=== PATIENT | male | born 1965 | race Caucasian/White ===

== ENCOUNTER 2017-09-19 13:59 | Observation (INO) ==
--- NOTE | 2017-09-19 14:10 | Emergency Department Note ---
ED Disposition Clinical Impression: Unstable angina pectoris Disposition: Admitted as Observation Condition on Discharge: Good - Critical Care Critical Care Time: No Attestation: On , the high probability of a clinically significant, sudden or life threatening deterioration of the following system(s) required my full and direct attention, intervention and personal management. The time I documented below is in addition to time spent performing reported procedures but includes the following listed in this critical care notation. Medical Decision Making - Medical Records Medical records reviewed: Yes: I reviewed the patient's medical records. Vital Signs: 09/19/17 13:59 09/19/17 15:07 Temperature 98.4 F Pulse Rate 80 Respiratory Rate 20 20 Blood Pressure 146/81 Blood Pressure [Right Arm] 161/102 Blood Pressure Mean [Right Arm] 121 Blood Pressure Source Automatic Cuff Blood Pressure Source [Right Arm] Automatic Cuff Blood Pressure Position Sitting Blood Pressure Position [Right Arm] Sitting 02 Sat by Pulse Oximetry 97 Oxygen Delivery Method Room Air - Lab Data Lab results reviewed: Yes: I reviewed the patient's lab results. Lab Results 09/19/17 14:06: WBC 7.1, RBC 5.03, Hgb 15.8, Hct 48.0, MCV 95.5 H, MCH 31.4 H, MCHC 32.9, RDW 12.9, Plt Count 164, MPV 9.3, Neut % (Auto) 61.2, Lymph % (Auto) 27.9, [place] % (Auto) 4.7, Eos % (Auto) 5.7, Baso % (Auto) 0.5, Neut # (Auto) 4.3 , Lymph # (Auto) 2.0, [place] # (Auto) 0.3, Eos # (Auto) 0.4, Baso # (Auto) 0.0 09/19/17 14:06: Troponin I < 0.02 09/19/17 14:06: Sodium 134 L, Potassium 4.1, Chloride 100, Carbon Dioxide 30, Anion Gap 8.1, BUN 11, Creatinine 1.06, Estimated Creat Clear 151, Estimated GFR 73, Est GFR ( Amer) 88, Glucose 381 H, Calcium 8.4 L, Total Bilirubin 0.4, AST 7 L, ALT 26, Alkaline Phosphatase 94, Total Protein 7.6, Albumin 3.8, Globulin 3.8 H, Albumin/Globulin Ratio 1.0 L Result diagrams: 09/20/17 06:15 09/20/17 06:15 Orders (Tests/Meds): ED MEDICATIONS Discontinued Medications Generic Name Dose Route Start Last Admin Trade Name Kelly PRN Reason Stop Dose Admin Acetaminophen 650 mg 09/19/17 15:09 09/19/17 20:04 Acetaminophen 325mg Tab PO 10/19/17 15:08 650 mg Q4HP PRN Administration As Needed for Fever or Pain Aspirin 325 mg 09/20/17 09:00 Aspirin 325mg Tablet PO 10/20/17 08:59 DAILY FLORENCIO Aspirin 243 mg 09/19/17 14:12 09/19/17 14:17 Aspirin 81mg Chewable Tablet PO 09/19/17 14:13 243 mg ONCE ONE Administration Aspirin 81 mg 09/21/17 09:00 Aspirin 81mg Chewable Tablet PO 10/21/17 08:59 DAILY FLORENCIO Diphenhydramine HCl 50 mg 09/20/17 11:35 09/20/17 12:01 Benadryl 50mg/1ml Vial IV 09/20/17 11:36 50 mg ONCE ONE Administration Fentanyl Citrate 50 mcg 09/20/17 11:35 Fentanyl 100mcg/2ml Vial IV 09/20/17 17:00 Q3MINP PRN Moderate to Severe Pain Fentanyl Citrate 25 mcg 09/20/17 11:35 09/20/17 12:27 Fentanyl 100mcg/2ml Vial IV 09/20/17 17:00 50 mcg Q3MINP PRN Administration Moderate to Severe Pain Flumazenil 0.2 mg 09/20/17 11:35 Romazicon 0.1mg/Ml 5ml Vial IV 09/20/17 23:00 NEEDED PRN Sedation Heparin Sodium (Porcine) 10,000 unit 09/20/17 11:35 09/20/17 12:35 Heparin 1,000 Units/Ml 10ml Vial (Baby Registry Sales Consultant) IV 09/20/17 15:35 8,000 unit NEEDED PRN Administration Emergency Box Hydrology Professor Heparin Sodium/Sodium Chloride 3,000 unit 09/20/17 11:35 09/20/17 11:58 Heparin 1000 Units/500ml Ns (Baby Registry Sales Consultant) IV 09/20/17 11:36 3,000 unit ONCE ONE Administration Sodium Chloride 1,000 mls @ 50 mls/hr 09/19/17 15:09 09/20/17 13:52 Sod Chlor 0.9% 1000ml Bag IV 10/19/17 15:08 Not Given .Q20H FLORENCIO Sodium Chloride 1,000 mls @ 25 mls/hr 09/20/17 11:45 09/20/17 11:58 Sod Chlor 0.9% 1000ml Bag IV 09/22/17 03:44 25 mls/hr .Q25H FLORENCIO Administration Iopamidol 150 ml 09/20/17 12:58 09/20/17 12:59 Rad-Isovue 370; 150ml IV 09/20/17 12:59 150 ml ONCE ONE Administration Lidocaine HCl 20 ml 09/20/17 11:35 09/20/17 11:58 Lidocaine 1% 20ml Mdv IJ 09/20/17 11:36 20 ml ONCE ONE Administration Metoprolol Succinate 100 mg 09/20/17 09:00 09/20/17 09:18 Toprol Xl 100mg Tablet PO 10/20/17 08:59 100 mg DAILY FLORENCIO Administration Midazolam HCl 1 mg 09/20/17 11:35 09/20/17 12:27 Midazolam 1mg/Ml 5ml Vial IV 09/20/17 17:00 3 mg Q3MINP PRN Administration Sedation Midazolam HCl 1 mg 09/20/17 11:35 Midazolam 2mg/2ml Vial IV 09/20/17 17:00 Q3MINP PRN Sedation Morphine Sulfate 4 mg 09/20/17 12:57 09/20/17 13:05 Morphine 4mg/Ml Syringe IV 09/20/17 12:58 4 mg ONCE ONE Administration Naloxone HCl 0.4 mg 09/20/17 11:35 Narcan 0.4mg/Ml Vial IV 09/20/17 17:00 Q5MINP PRN Decreased respirations Nicotine 21 mg 09/19/17 15:09 09/20/17 16:00 Nicoderm 21mg/24hr Patch TD 09/22/17 14:54 21 mg DAILYP PRN Administration Nicotine Cravings Nitroglycerin 0.4 mg 09/19/17 14:12 09/19/17 14:16 Nitrostat 0.4mg Sl Tablet SL 09/19/17 14:13 0.4 mg ONCE ONE Administration Nitroglycerin 1 gm 09/19/17 14:30 09/19/17 14:33 Nitroglycerin 1 Inch Oint Udp TD 09/19/17 14:31 1 gm ONCE ONE Administration Nitroglycerin 800 mcg 09/20/17 11:35 09/20/17 11:58 Nitroglycerin 800mcg/8ml Syr (Baby Registry Sales Consultant) IV 09/20/17 17:00 800 mcg NEEDED PRN Administration Emergency Box Hydrology Professor Sodium Chloride 10 ml 09/20/17 11:35 Saline Flush 10ml Syringe IV 09/20/17 17:00 NEEDED PRN Maintain IV Site Ticagrelor 180 mg 09/20/17 12:57 09/20/17 13:06 Brilinta 90mg Tablet PO 09/20/17 12:58 180 mg ONCE ONE Administration Ticagrelor 90 mg 09/20/17 21:00 Brilinta 90mg Tablet PO 10/20/17 20:59 BID FLORENCIO Verapamil HCl 2.5 mg 09/20/17 11:35 09/20/17 11:58 Verapamil 2.5mg/Ml 2ml Vial IV 09/20/17 11:36 2.5 mg ONCE ONE Administration - Radiology Data #1 Image(s): Chest Image Reviewed: Yes I reviewed the patient's radiology results Preliminary Findings: Normal/NAD, No Infiltrates Seen, Normal Lung Inflation Jackson , Normal Heart Size - ECG Data Tracing #1 I reviewed this ECG and interpreted as documented below: INC RBBB, NSR, 88; no acute ST c hanges and no ectopy - Physician Consults Physician Consulted: Dr. Rodrigues insulation inspector for Dr. Raymond, who is on service call Time: 14:48 Reason -: Admission Comment/Response: admit for obs; serial trop, monitor - Dionicio Inquiry Pt receiving controlled substance: No Chest Pain HPI - General Stated Complaint: Chest Pain Time Seen by Provider: 09/19/17 14:07 Mode of Arrival: Ambulatory Source of Information: Patient, Spouse Limitations: No Limitations Description of Symptoms (Recalled from ER Triage Doc. 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 Radiates to jaw and shoulders. Denies SOB or flu sx; no n /v; no diaphoresis; no new calf pain; no syncope; no palpitations. PCP has referred him to Dr. Luis with stress test scheduled in September. Hx HTN with recent Rx metoprolol per PCP. Smokes. - Related Data Home Medications Medication Instructions Recorded Confirmed Metoprolol Succinate 100 mg PO DAILY 09/19/17 09/19/17 atorvastatin 40 mg tablet 40 mg PO DAILY tab 09/29/17 ibuprofen 800 mg tablet 800 mg PO DAILY tab 09/29/17 metformin 500 mg tablet 500 mg PO BID tab 09/29/17 Previous Rx's Medication Instructions Recorded Aspirin [Aspirin 81mg chewable 81 mg PO DAILY #30 tab.chew 09/20/17 tab] Ticagrelor [Brilinta 90mg Tablet] 90 mg PO BID #60 tab 09/20/17 lisinopril 10 1 tab PO DAILY #30 tab 09/29/17 mg-hydrochlorothiazide 12.5 mg tablet metoprolol succinate ER 50 mg 50 mg PO DAILY #30 tab 09/29/17 tablet,extended release 24 hr Allergies Allergy/AdvReac Type Severity Reaction Status Date / Time INGREDIENT: NO KNOWN - NO Allergy Unknown Uncoded 07/14/17 14:58 KNOWN DRUG ALLERGY [facility] History I have reviewed the patient's past medical history: Yes Medical History: Reports:: Hypertension ROS Obtained: Yes All systems reviewed & no additional complaints Physical Exam - General General appearance: alert, in no apparent distress - Eye Eye exam: Present: normal appearance, PERRL, EOMI - Neck Neck exam: Present: normal inspection, full ROM, trachea midline. Absent: meningismus, lymphadenopathy, thyromegaly - Chest Chest inspection: Present: normal inspection, symmetric chest wall rise. Absent : tenderness - Respiratory Respiratory exam: Present: normal lung sounds bilaterally. Absent: respiratory distress - Cardiovascular Cardiovascular exam: Present: regular rate, normal rhythm. Absent: JVD - Abdominal Exam Abdominal exam: Present: soft, normal bowel sounds. Absent: distention, tenderness, guarding - Neurological Exam Neurological exam: Present: alert, oriented X3, normal gait. Absent: motor sensory deficit - Psychiatric Psychiatric exam: Present: normal affect, normal mood - Skin Skin exam: Present: warm, dry, intact, normal color. Absent: rash, cyanosis, diaphoresis
[2017-09-19 14:16] LABS: Basophils % 0.5 % (0.1-2.0); Eosinophils # 0.4 K/mm3 (0.0-0.4); Eosinophils % 5.7 % (0.1-12.0); Hemoglobin 15.8 g/dL (14.1-18.0); Lymphocytes % 27.9 K/mm3 (10-50); Mean Corpuscular HGB Conc 32.9 g/dL (31.8-35.4); Mean Corpuscular Hemoglobin 31.4 pg (27.0-31.2); Mean Corpuscular Volume 95.5 fl (80-94); Mean Platelet Volume 9.3 fl (7.4-10.4); Monocytes # 0.3 K/mm3 (0.1-1.0); Monocytes % 4.7 % (1.7-9.3); Neutrophils # 4.3 K/mm3 (1.8-7.8); Neutrophils % 61.2 % (37.0-80.0); Platelet Count 164 K/mm3 (142-424); Red Blood Count 5.03 M/mm3 (4.60-6.20); Red Cell Distribution Width 12.9 % (11.5-17.5); White Blood Count 7.1 K/mm3 (4.8-10.8)
[2017-09-19 14:30] LABS: Albumin Level 3.8 gm/dL (3.4-5.0); Anion Gap 8.1 mEq/L (5-15); Bilirubin,Total 0.4 mg/dL (0.2-1.0); Calcium 8.4 mg/dL (8.5-10.1); Globulin 3.8 gm/dl (1.3-3.2); Potassium 4.1 mmoL/L (3.5-5.1); Total Protein,Serum 7.6 gm/dL (6.4-8.2)
[2017-09-19 15:53] LABS: Chol/HDL Ratio 4.8 (1-3.5)
--- NOTE | 2017-09-19 19:40 | History & Physical Report ---
*Admission Date: 09/19/17 *Chief complaint: Chest Pain *History of present illness: 52-year-old white male with history of hypertension, who came to the emergency department with chest pain that has occurred over the past couple of hours. He has been seen at the office by his family practitioner in [place] for chest pain over the past couple of weeks and has not had a stress test or echo that was initiated with a cardiology referral and has an appointment with the cardiology group here on Thursday for evaluation. Today after eating Lebanese food his pain change in character after walking to his car, he had pain up in both sides of his neck, and became concerned about this and came to the emergency department. Given his risk factors of obesity, hypertension and the new character of the pain he was admitted for observation and serial cardiac enzymes. Of note Nitropaste application has completely resolved his pain after a couple of sublingual nitroglycerin tablets ameliorated it in the ER. [facility] History Medical History: Reports:: Hyperlipidemia, Hypertension Denies:: Cancer, Diabetes Mellitus Type 1, Diabetes Mellitus Type 2, Internal Pacemaker, MRSA Other Surgeries: No: Pacemaker Amputation: No Fractures: No - *Social History Educational Level: Completed GED/General Educational Development Smoking Status: Current every day smoker Tobacco Type: cigarettes # Packs/Day (cigarettes): 1 Alcohol Intake: never Occupational Status: employed Housing: house Household Members: spouse - Psychiatric History Expresses thoughts of harming self/others: None Suicide Plan Description: No Plan *Family Hx:: Diabetes, Heart Attack, Hyperlipidemia, Hypertension Review of Systems - Review of Systems Review of systems:: unable to obtain, other, pertinent systems reviewed and negative unless documented below - *Respiratory Denies chest congestion, Denies cough, Denies shortness of breath, Denies shortness of breath with activity Meds Home Medications Medication Instructions Recorded Confirmed Type Metoprolol Succinate 100 mg PO DAILY 09/19/17 09/19/17 History Allergies Allergy/AdvReac Type Severity Reaction Status Date / Time INGREDIENT: NO KNOWN - NO Allergy Unknown Uncoded 07/14/17 14:58 KNOWN DRUG ALLERGY Exam Vital signs and Labs for Last 24 Hours: Temp Pulse Resp BP Pulse Ox 98.3 F 80 20 146/91 98 09/19/17 15:19 09/19/17 16:00 09/19/17 15:19 09/19/17 15:19 09/19/17 15:19 Laboratory Results - last 24 hr 09/19/17 15:36: Triglycerides 283 H, Cholesterol 192, LDL Cholesterol 95, VLDL Cholesterol 57 H, HDL Cholesterol 40, Cholesterol/HDL Ratio 4.8 H I & O for Last 24 hours: Intake & Output 09/17/17 09/18/17 09/19/17 09/20/17 11:59 11:59 11:59 11:59 Intake Total 520 / 520 Balance 520 / 520 Narrative: Patient is alert, morbidly obese. Bearded and appears somewhat older than his stated age. Lungs are clear bilaterally, heart rate is regular without murmurs. Abdomen is soft and nontender. No edema noted. Neurologically intact. Assessment and Plan - Assessment and plan all Dx Assessment and Plan for all problems:: Agree with admission to hospital, serial cardiac enzymes.
[2017-09-20 06:56] LABS: Basophils % 0.5 % (0.1-2.0); Eosinophils # 0.4 K/mm3 (0.0-0.4); Eosinophils % 5.1 % (0.1-12.0); Hemoglobin 15.4 g/dL (14.1-18.0); Lymphocytes % 24.4 K/mm3 (10-50); Mean Corpuscular HGB Conc 32.7 g/dL (31.8-35.4); Mean Corpuscular Volume 94.7 fl (80-94); Mean Platelet Volume 9.3 fl (7.4-10.4); Monocytes # 0.5 K/mm3 (0.1-1.0); Monocytes % 5.5 % (1.7-9.3); Neutrophils # 5.3 K/mm3 (1.8-7.8); Neutrophils % 64.5 % (37.0-80.0); Platelet Count 142 K/mm3 (142-424); Red Blood Count 4.96 M/mm3 (4.60-6.20); Red Cell Distribution Width 13.1 % (11.5-17.5); White Blood Count 8.3 K/mm3 (4.8-10.8)
[2017-09-20 07:14] LABS: Albumin Level 3.4 gm/dL (3.4-5.0); Anion Gap 8.7 mEq/L (5-15); Bilirubin,Total 0.6 mg/dL (0.2-1.0); Calcium 8.4 mg/dL (8.5-10.1); Globulin 3.5 gm/dl (1.3-3.2); Potassium 4.7 mmoL/L (3.5-5.1); Total Protein,Serum 6.9 gm/dL (6.4-8.2)
--- NOTE | 2017-09-20 08:47 | Progress Note ---
Internal Medicine - PN: Subj *Date: 09/20/17 *Time: 08:46 Interval history: Patient without pain overnight and rested well. Exam Vital signs and Labs for Last 24 Hours: Temp Pulse Resp BP Pulse Ox 97.7 F 86 20 143/86 97 09/20/17 07:53 09/20/17 07:53 09/20/17 07:53 09/20/17 07:53 09/20/17 07:53 Laboratory Results - last 24 hr 09/19/17 15:36: Triglycerides 283 H, Cholesterol 192, LDL Cholesterol 95, VLDL Cholesterol 57 H, HDL Cholesterol 40, Cholesterol/HDL Ratio 4.8 H 09/19/17 19:50: Troponin I 0.45 H 09/20/17 06:15: WBC 8.3, RBC 4.96, Hgb 15.4, Hct 47.0, MCV 94.7 H, MCH 31.0, MCHC 32.7, RDW 13.1, Plt Count 142, MPV 9.3, Neut % (Auto) 64.5, Lymph % (Auto) 24.4, [place] % (Auto) 5.5, Eos % (Auto) 5.1, Baso % (Auto) 0.5, Neut # (Auto) 5.3 , Lymph # (Auto) 2.0, [place] # (Auto) 0.5, Eos # (Auto) 0.4, Baso # (Auto) 0.0 09/20/17 06:15: Sodium 141, Potassium 4.7, Chloride 105, Carbon Dioxide 32, Anion Gap 8.7, BUN 10, Creatinine 0.89, Estimated Creat Clear 176, Estimated GFR 89, Est GFR ( Amer) 108 D, Glucose 240 H D, Calcium 8.4 L, Total Bilirubin 0.6, AST 8 L, ALT 24, Alkaline Phosphatase 82, Total Creatine Kinase 49, CK-MB (CK-2) 1.5, CK-MB (CK-2) Rel Index 3.1, Troponin I 0.47 H, Total Protein 6.9, Albumin 3.4 D, Globulin 3.5 H, Albumin/Globulin Ratio 1.0 L I & O for Last 24 hours: Intake & Output 09/17/17 09/18/17 09/19/17 09/20/17 11:59 11:59 11:59 11:59 Intake Total 1028 / 1028 Output Total Balance 1027 / 1027 Narrative: Overall patient feels good, heart rate regular, lungs clear. Assessment and Plan (1) Non-STEMI (non-ST elevated myocardial infarction) Current visit: Yes Status: Acute Category: Medical Code(s): I21.4 - Non- ST elevation (NSTEMI) myocardial infarction - Assessment and plan all Dx Assessment and Plan for all problems:: Patient ruled in last night for non-STEMI with troponin elevation. Discussed case with cardiology. Patient will be scheduled for left heart cath this morning.
--- NOTE | 2017-09-20 11:33 | Pharmacy Consult Notes ---
[facility] Pharmacy VTE Monitoring - Patient Demographics Admission date: 09/20/17 Report Date: 09/20/17 Time: 11:33 Allergies/Adverse Reactions: Patient Allergies INGREDIENT: NO KNOWN - NO KNOWN DRUG ALLERGY Allergy (Unknown, Uncoded 07/14/17 14:58) Height: 1.85 m Weight: 131.117 kg Patient Problems: Current Active Problems Unstable angina pectoris (Acute) Non-STEMI (non-ST elevated myocardial infarction) (Acute) - VTE Risk Labs: VTE Related Lab Results Hgb 15.4 g/dL (14.1-18.0) 09/20/17 06:15 Hct 47.0 % (42.0-52.0) 09/20/17 06:15 Plt Count 142 K/mm3 (142-424) 09/20/17 06:15 BUN 10 mg/dL (7-18) 09/20/17 06:15 Creatinine 0.89 mg/dL (0.70-1.30) 09/20/17 06:15 Estimated Creat Clear 176 mL/min (0-300) 09/20/17 06:15 VTE Score: 3 VTE Risk Level: Low Risk - VTE Diagnosis Confirmed Comment: SHANICE TAYLOR ORDERED
--- NOTE | 2017-09-20 16:53 | Discharge Summary ---
General - General Admission date: 09/19/17 Discharge date: 09/20/17 HPI HPI: 52-year-old white male with history of hypertension, who came to the emergency department with chest pain that has occurred over the past couple of hours. He has been seen at the office by his family practitioner in [place] for chest pain over the past couple of weeks and has not had a stress test or echo that was initiated with a cardiology referral and has an appointment with the cardiology group here on Thursday for evaluation. Today after eating Pakistani food his pain change in character after walking to his car, he had pain up in both sides of his neck, and became concerned about this and came to the emergency department. Given his risk factors of obesity, hypertension and the new character of the pain he was admitted for observation and serial cardiac enzymes. Of note Nitropaste application has completely resolved his pain after a couple of sublingual nitroglycerin tablets ameliorated it in the ER. Objective Vital signs: Temp Pulse Resp BP Pulse Ox 98.4 F 73 20 142/88 98 09/20/17 11:17 09/20/17 16:05 09/20/17 16:05 09/20/17 16:05 09/20/17 16:05 Narrative: Patient has radial bandage device on the right arm. Otherwise is alert, pleasant, heart rate regular, no edema. Lungs are clear. Hospital Course Hospital Course: Patient was admitted, initial enzymes sets were negative but overnight became positive into the 0.4 range with evidence of non-STEMI. Cardiology was consulted. Left heart cath was performed revealing significant disease in the RCA which was stented successfully. The patient did well, observed after heart cath. He will be discharged tonight with Brilinta prescription, aspirin, and medicine for diabetes. Cardiology appointment is already made for September 29. I will see him in my office on Thursday. Results Labs on day of discharge: Labs from last 24 hours 09/20/17 09/20/17 09/20/17 12:37 06:15 06:15 WBC 8.3 RBC 4.96 Hgb 15.4 Hct 47.0 MCV 94.7 H MCH 31.0 MCHC 32.7 RDW 13.1 Plt Count 142 MPV 9.3 Neut % (Auto) 64.5 Lymph % (Auto) 24.4 [place] % (Auto) 5.5 Eos % (Auto) 5.1 Baso % (Auto) 0.5 Neut # (Auto) 5.3 Lymph # (Auto) 2.0 [place] # (Auto) 0.5 Eos # (Auto) 0.4 Baso # (Auto) 0.0 Activated Clotting Time 327 H* Sodium 141 Potassium 4.7 Chloride 105 Carbon Dioxide 32 Anion Gap 8.7 BUN 10 Creatinine 0.89 Estimated Creat Clear 176 Estimated GFR 89 Est GFR ( Amer) 108 D Glucose 240 H D Calcium 8.4 L Total Bilirubin 0.6 AST 8 L ALT 24 Alkaline Phosphatase 82 Total Creatine Kinase 49 CK-MB (CK-2) 1.5 CK-MB (CK-2) Rel Index 3.1 Troponin I 0.47 H Total Protein 6.9 Albumin 3.4 D Globulin 3.5 H Albumin/Globulin Ratio 1.0 L 09/19/17 19:50 WBC RBC Hgb Hct MCV MCH MCHC RDW Plt Count MPV Neut % (Auto) Lymph % (Auto) [place] % (Auto) Eos % (Auto) Baso % (Auto) Neut # (Auto) Lymph # (Auto) [place] # (Auto) Eos # (Auto) Baso # (Auto) Activated Clotting Time Sodium Potassium Chloride Carbon Dioxide Anion Gap BUN Creatinine Estimated Creat Clear Estimated GFR Est GFR ( Amer) Glucose Calcium Total Bilirubin AST ALT Alkaline Phosphatase Total Creatine Kinase CK-MB (CK-2) CK-MB (CK-2) Rel Index Troponin I 0.45 H Total Protein Albumin Globulin Albumin/Globulin Ratio DS: Diagnosis - Discharge Diagnosis (1) Non-STEMI (non-ST elevated myocardial infarction) Status: Acute (2) Diabetes type 2, controlled Status: Acute Discharge Plan - Patient Discharge Instructions ACTIVITY: Continue current activity, No heavy lifting DIET: continue same diet, low fat, low cholesterol Patient Instructions: DI for Atypical Chest Pain - Follow up Plan Follow up with: Carlton Rodrigues MD [Staff Physician] - 09/23/17 2:00 am Disposition: Home, Self-[facility] Medications: Home Medications Medication Instructions Recorded Confirmed Type Metoprolol Succinate 100 mg PO DAILY 09/19/17 09/19/17 History Prescriptions/Medication Reconciliation: New Metformin HCl [Metformin 500mg Tablet] 0 mg OP BID 30 Days #60 tab Ticagrelor [Brilinta 90mg Tablet] 90 mg PO BID #60 tab Aspirin [Aspirin 81mg chewable tab] 81 mg PO DAILY #30 tab.chew Continue Metoprolol Succinate 100 mg PO DAILY
[2017-09-20 17:57] VITALS: BP 137/90
== END 2017-09-20 18:36 | disposition home or self-care (01) ==
LOC: ER 13:59 → 2ND 13:59 → INTOOBSV 15:10 → OBSVTOIN 15:10 → 2ND 15:11
PROVIDERS: ADMIT Internal Medicine Adolescent Medicine; ATTEND Internal Medicine Adolescent Medicine

== ENCOUNTER → 2017-10-06 12:38 | Outpatient (CLI) | payer BC, SELFPAY ==
--- NOTE | 2017-10-06 12:44 | CA_ITS ---
PROCEDURE: 2-D M-mode and color Doppler study INDICATIONS FOR THE TEST: Chest pain+ COPD Heart Murmur Tobacco Smoking+ Palpitations+ Fatigue Syncope Edema+ Hypertension+Diabetes Mellitus+ Rheumatic Fever SOB TAVARES+Obesity+Hyperlipidemia+ Family History HD+ Additional History CAD, 2 stents, Abn EKG, hx of non-stemi PATIENT INFORMATION HEIGHT: 73 WEIGHT: 291 GENDER: Male B/P: 157/99 2-D/M-MODE INTERPRETATION: 2-D MEASUREMENTS OBSERVED VALUES IN CMS Right Ventricular Dimension (RVDd) 2.1 Interventricular Septum (Thickness)(IVsd) 0.9 Left Ventricular Internal Dimensions(LVIDd) 4.9 Left Ventricular Posterior Wall (Thickness)(LVPWd) 1.0 Aortic Root 3.3 Aortic Cusp Separation 2.4 Left Atrial Dimensions (LAD) 3.4 2D 1. Left atrium is mildly enlarged, left ventricle is normal size, there is mild qualitative concentric left ventricular hypertrophy, visually estimated ejection fraction of 45%, there is marked hypokinesis involving the basal septum and inferobasal wall. 2. The right atrium and right ventricle are normal size and contractility. 3. The aortic valve is minimally thickened and fibrosed. 4. The mitral and tricuspid valve are structurally normal. 5. The pulmonic valve is poorly visualized. 6. No significant pericardial effusion noted. DOPPLER INTERROGATION: Doppler interrogation of the aortic, mitral and tricuspid valvular presence of mild mitral and tricuspid regurgitation, tricuspid and jet velocity is insufficient for calculation of the right ventricular systolic pressure, grade 1 diastolic dysfunction seen without tissue Doppler evidence of raised left atrial pressure. CONCLUSION: 1. Mildly enlarged left atrium, normal left ventricular size, mild concentric left ventricular hypertrophy, visually estimated ejection fraction 45% with multiple segmental wall motion abnormality described above, grade 1 diastolic dysfunction seen with tissue Doppler evidence of raised left atrial pressure. 2. Mild mitral and tricuspid regurgitation 3. No significant pericardial effusion noted.
== END ==
PROVIDERS: Family Provider Family Medicine; PCP Internal Medicine Adolescent Medicine; Visit Provider Internal Medicine
DX: I21.4 Non-ST elevation (NSTEMI) myocardial infarction (principal); I25.10 Atherosclerotic heart disease of native coronary artery without angina pectoris; I20.0 Unstable angina; E78.5 Hyperlipidemia, unspecified; E11.9 Type 2 diabetes mellitus without complications; I10 Essential (primary) hypertension
CPT/HCPCS: 93306

== ENCOUNTER → 2017-10-19 09:44 | Outpatient (CLI) | payer BC, SELFPAY ==
[2017-10-19 10:14] LABS: Basophils # 0.1 K/mm3 (0-0.2); Basophils % 0.6 % (0.1-2.0); Eosinophils # 0.5 K/mm3 (0.0-0.4); Eosinophils % 4.6 % (0.1-12.0); Hemoglobin 16.5 g/dL (14.1-18.0); Lymphocytes # 1.9 K/mm3 (0.7-4.5); Mean Corpuscular HGB Conc 32.9 g/dL (31.8-35.4); Mean Platelet Volume 10.1 fl (7.4-10.4); Monocytes # 0.5 K/mm3 (0.1-1.0); Monocytes % 5.1 % (1.7-9.3); Neutrophils # 7.1 K/mm3 (1.8-7.8); Neutrophils % 70.7 % (37.0-80.0); Platelet Count 174 K/mm3 (142-424); Red Blood Count 5.32 M/mm3 (4.60-6.20); Red Cell Distribution Width 12.4 % (11.5-17.5); White Blood Count 10.1 K/mm3 (4.8-10.8)
[2017-10-19 10:15] LABS: Hemoglobin A1C 10.1 % (0.0-7.0)
[2017-10-19 11:47] LABS: Erythrocyte Sedimentation Rate 9 mm/hr (0-20)
[2017-10-19 12:04] LABS: Alanine Aminotransferase 34 U/L (12-78); Albumin Level 4.1 gm/dL (3.4-5.0); Albumin/Globulin Ratio 1.1 (1.1-1.8); Alkaline Phosphatase 125 U/L (46-116); Anion Gap 15.8 mEq/L (5-15); Aspartate Amino Transferase 15 U/L (15-37); Bilirubin,Total 0.7 mg/dL (0.2-1.0); Blood Urea Nitrogen 21 mg/dL (7-18); Calcium 9.4 mg/dL (8.5-10.1); Carbon Dioxide 29 mmol/L (21.0-32.0); Chloride 91 mmol/L (98-107); Chol/HDL Ratio 3.5 (1-3.5); Cholesterol 148 mg/dL (140-200); Creatinine,Serum 1.05 mg/dL (0.70-1.30); Estimated Glomerular Filt Rate 74 ml/min (>60); GFR (African American) 89 ML/MIN (>60); Globulin 3.7 gm/dl (1.3-3.2); HDL Cholesterol 42 mg/dL (27-67); LDL Cholesterol 47 mg/dL (0-130); Potassium 4.8 mmoL/L (3.5-5.1); Sodium 131 mmol/L (136-145); Total Protein,Serum 7.8 gm/dL (6.4-8.2); Triglycerides 294 mg/dL (30-200); VLDL Cholesterol 59 mg/dL (0-40)
[2017-10-19 12:07] LABS: Glucose 426 mg/dL (74-106)
[2017-10-21 06:15] LABS: Antinuclear Antibodies, IFA Negative (.)
== END ==
PROVIDERS: Visit Provider Internal Medicine Adolescent Medicine
DX: E11.9 Type 2 diabetes mellitus without complications (principal); M10.9 Gout, unspecified; I25.10 Atherosclerotic heart disease of native coronary artery without angina pectoris
CPT/HCPCS: 36415; 80053; 80061; 83036; 84550; 85025; 85651; 86038

== ENCOUNTER → 2017-12-11 12:37 | Outpatient (CLI) | payer BC, SELFPAY ==
[2017-12-11 12:59] LABS: Basophils % 0.5 % (0.1-2.0); Eosinophils # 0.3 K/mm3 (0.0-0.4); Eosinophils % 3.3 % (0.1-12.0); Hemoglobin 15.7 g/dL (14.1-18.0); Lymphocytes # 1.2 K/mm3 (0.7-4.5); Lymphocytes % 15.6 K/mm3 (10-50); Mean Corpuscular HGB Conc 33.3 g/dL (31.8-35.4); Mean Corpuscular Hemoglobin 31.7 pg (27.0-31.2); Mean Corpuscular Volume 95.1 fl (80-94); Mean Platelet Volume 8.6 fl (7.4-10.4); Monocytes # 0.4 K/mm3 (0.1-1.0); Monocytes % 5.6 % (1.7-9.3); Neutrophils # 5.8 K/mm3 (1.8-7.8); Neutrophils % 74.9 % (37.0-80.0); Platelet Count 192 K/mm3 (142-424); Red Blood Count 4.95 M/mm3 (4.60-6.20); Red Cell Distribution Width 13.1 % (11.5-17.5); White Blood Count 7.7 K/mm3 (4.8-10.8)
[2017-12-11 14:21] LABS: Alanine Aminotransferase 19 U/L (12-78); Albumin Level 3.7 gm/dL (3.4-5.0); Albumin/Globulin Ratio 1.1 (1.1-1.8); Alkaline Phosphatase 89 U/L (46-116); Anion Gap 14.1 mEq/L (5-15); Aspartate Amino Transferase 12 U/L (15-37); Bilirubin,Total 0.9 mg/dL (0.2-1.0); Blood Urea Nitrogen 13 mg/dL (7-18); Calcium 8.9 mg/dL (8.5-10.1); Carbon Dioxide 26 mmol/L (21.0-32.0); Chloride 101 mmol/L (98-107); Chol/HDL Ratio 2.8 (1-3.5); Cholesterol 108 mg/dL (140-200); Creatinine,Serum 0.81 mg/dL (0.70-1.30); Estimated Glomerular Filt Rate 99 ml/min (>60); GFR (African American) 120 ML/MIN (>60); Globulin 3.5 gm/dl (1.3-3.2); Glucose 110 mg/dL (74-106); HDL Cholesterol 38 mg/dL (27-67); LDL Cholesterol 54 mg/dL (0-130); Potassium 4.1 mmoL/L (3.5-5.1); Sodium 137 mmol/L (136-145); Total Protein,Serum 7.2 gm/dL (6.4-8.2); Triglycerides 81 mg/dL (30-200); VLDL Cholesterol 16 mg/dL (0-40)
[2017-12-11 15:16] LABS: Hemoglobin A1C 9.8 % (0.0-7.0)
== END ==
PROVIDERS: Visit Provider Internal Medicine Adolescent Medicine
DX: E11.9 Type 2 diabetes mellitus without complications (principal); I25.10 Atherosclerotic heart disease of native coronary artery without angina pectoris; M10.9 Gout, unspecified
CPT/HCPCS: 36415; 80053; 80061; 83036; 84550; 85025

== ENCOUNTER → 2018-03-13 10:01 | Outpatient (CLI) | payer BC, SELFPAY ==
[2018-03-13 10:17] LABS: Basophils % 0.5 % (0.1-2.0); Eosinophils # 0.4 K/mm3 (0.0-0.4); Eosinophils % 5.7 % (0.1-12.0); Hemoglobin 16.4 g/dL (14.1-18.0); Lymphocytes # 1.4 K/mm3 (0.7-4.5); Lymphocytes % 20.2 K/mm3 (10-50); Mean Corpuscular HGB Conc 32.1 g/dL (31.8-35.4); Mean Corpuscular Hemoglobin 30.1 pg (27.0-31.2); Mean Corpuscular Volume 93.6 fl (80-94); Mean Platelet Volume 8.5 fl (7.4-10.4); Monocytes # 0.4 K/mm3 (0.1-1.0); Monocytes % 5.3 % (1.7-9.3); Neutrophils # 4.6 K/mm3 (1.8-7.8); Neutrophils % 68.3 % (37.0-80.0); Platelet Count 163 K/mm3 (142-424); Red Blood Count 5.44 M/mm3 (4.60-6.20); Red Cell Distribution Width 14.4 % (11.5-17.5); White Blood Count 6.7 K/mm3 (4.8-10.8)
[2018-03-13 10:58] LABS: Hemoglobin A1C 6.9 % (0.0-7.0)
[2018-03-13 11:04] LABS: Alanine Aminotransferase 20 U/L (12-78); Albumin Level 4.1 gm/dL (3.4-5.0); Albumin/Globulin Ratio 1.2 (1.1-1.8); Alkaline Phosphatase 71 U/L (46-116); Anion Gap 12.4 mEq/L (5-15); Aspartate Amino Transferase 7 U/L (15-37); Bilirubin,Total 0.5 mg/dL (0.2-1.0); Blood Urea Nitrogen 13 mg/dL (7-18); Carbon Dioxide 29 mmol/L (21.0-32.0); Chloride 105 mmol/L (98-107); Chol/HDL Ratio 2.7 (1-3.5); Cholesterol 111 mg/dL (140-200); Estimated Glomerular Filt Rate 78 ml/min (>60); GFR (African American) 94 ML/MIN (>60); Globulin 3.3 gm/dl (1.3-3.2); Glucose 110 mg/dL (74-106); HDL Cholesterol 41 mg/dL (27-67); LDL Cholesterol 54 mg/dL (0-130); Potassium 4.4 mmoL/L (3.5-5.1); Sodium 142 mmol/L (136-145); Total Protein,Serum 7.4 gm/dL (6.4-8.2); Triglycerides 82 mg/dL (30-200); Uric Acid 6.5 mg/dL (2.6-7.2); VLDL Cholesterol 16 mg/dL (0-40)
== END ==
PROVIDERS: Visit Provider Internal Medicine Adolescent Medicine
DX: I25.10 Atherosclerotic heart disease of native coronary artery without angina pectoris (principal); E11.9 Type 2 diabetes mellitus without complications; M10.9 Gout, unspecified
CPT/HCPCS: 36415; 80053; 80061; 83036; 84550; 85025

== ENCOUNTER → 2018-09-03 11:23 | Outpatient (CLI) | payer BC, SELFPAY ==
--- NOTE | 2018-09-03 11:27 | XR_ITS ---
XR shoulder RT min 2V HISTORY: ITS.REASON: RT SHOULDER PAIN ORDERING PHYSICIAN: Carlton Rodrigues MD PATIENT AGE: 53 years Comparison: None FINDINGS: No fracture or dislocation. No lytic or blastic change. There is normal mineralization. erosive changes evident. There are mild hypertrophic changes along the inferior aspect of the acromion distally causing mild subacromial stenosis. The glenohumeral joint is unremarkable. IMPRESSION: Mild subacromial stenosis secondary to mild hypertrophic change along the inferior aspect of the acromion
--- NOTE | 2018-09-03 11:27 | XR_ITS ---
XR shoulder LT min 2V HISTORY: ITS.REASON: LEFT SHOULDER PAIN ORDERING PHYSICIAN: Carlton Rodrigues MD PATIENT AGE: 53 years Comparison: None FINDINGS: There is mild hypertrophic change of the acromioclavicular joint causing mild subacromial stenosis. This has developed since an older exam of 04/28/2008. The glenohumeral joint has an unremarkable appearance. IMPRESSION: Mild subacromial stenosis secondary to hypertrophic change of the AC joint
== END ==
PROVIDERS: PCP Internal Medicine Adolescent Medicine; Visit Provider Internal Medicine Adolescent Medicine
DX: M25.511 Pain in right shoulder (principal); M25.512 Pain in left shoulder
CPT/HCPCS: 73030

== ENCOUNTER → 2018-10-09 09:03 | Outpatient (CLI) | payer BC, SELFPAY ==
[2018-10-09 09:42] LABS: Basophils % 0.5 % (0.1-2.0); Eosinophils # 0.3 K/mm3 (0.0-0.4); Eosinophils % 5.4 % (0.1-12.0); Hematocrit 48.7 % (42.0-52.0); Hemoglobin 16.1 g/dL (14.1-18.0); Lymphocytes # 1.6 K/mm3 (0.7-4.5); Lymphocytes % 26.7 % (10-50); Mean Corpuscular Hemoglobin 31.7 pg (27.0-31.2); Mean Platelet Volume 8.6 fl (7.4-10.4); Monocytes # 0.3 K/mm3 (0.1-1.0); Neutrophils # 3.8 K/mm3 (1.8-7.8); Neutrophils % 62.2 % (37.0-80.0); Platelet Count 156 K/mm3 (142-424); Red Blood Count 5.07 M/mm3 (4.60-6.20); Red Cell Distribution Width 13.7 % (11.5-17.5); White Blood Count 6.1 K/mm3 (4.8-10.8)
[2018-10-09 09:49] LABS: Hemoglobin A1C 6.1 % (0.0-7.0)
[2018-10-09 10:31] LABS: Alanine Aminotransferase 16 U/L (12-78); Albumin Level 3.8 gm/dL (3.4-5.0); Albumin/Globulin Ratio 1.2 (1.1-1.8); Alkaline Phosphatase 65 U/L (46-116); Anion Gap 13.7 mEq/L (5-15); Aspartate Amino Transferase 10 U/L (15-37); Bilirubin,Total 0.5 mg/dL (0.2-1.0); Blood Urea Nitrogen 16 mg/dL (7-18); Carbon Dioxide 29 mmol/L (21.0-32.0); Chloride 104 mmol/L (98-107); Chol/HDL Ratio 2.4 (1-3.5); Cholesterol 115 mg/dL (140-200); Creatinine,Serum 0.86 mg/dL (0.70-1.30); Estimated Glomerular Filt Rate 92 ml/min (>60); GFR (African American) 112 ML/MIN (>60); Globulin 3.1 gm/dl (1.3-3.2); Glucose 95 mg/dL (74-106); HDL Cholesterol 48 mg/dL (27-67); LDL Cholesterol 58 mg/dL (0-130); Potassium 4.7 mmoL/L (3.5-5.1); Sodium 142 mmol/L (136-145); Total Protein,Serum 6.9 gm/dL (6.4-8.2); Triglycerides 45 mg/dL (30-200); VLDL Cholesterol 9 mg/dL (0-40)
== END ==
PROVIDERS: Visit Provider Internal Medicine Adolescent Medicine
DX: E11.9 Type 2 diabetes mellitus without complications (principal); I25.10 Atherosclerotic heart disease of native coronary artery without angina pectoris
CPT/HCPCS: 36415; 80053; 80061; 83036; 85025

== ENCOUNTER → 2019-04-11 17:06 | Outpatient (CLI) | payer BC, SELFPAY ==
[2019-04-11 18:55] LABS: Alanine Aminotransferase 17 U/L (12-78); Albumin/Globulin Ratio 1.3 (1.1-1.8); Alkaline Phosphatase 65 U/L (46-116); Anion Gap 13.4 mEq/L (5-15); Aspartate Amino Transferase 11 U/L (15-37); Bilirubin,Total 0.5 mg/dL (0.2-1.0); Blood Urea Nitrogen 16 mg/dL (7-18); Calcium 9.2 mg/dL (8.5-10.1); Carbon Dioxide 26 mmol/L (21.0-32.0); Chloride 105 mmol/L (98-107); Chol/HDL Ratio 2.7 (1-3.5); Cholesterol 129 mg/dL (140-200); Creatinine,Serum 0.84 mg/dL (0.70-1.30); Estimated Glomerular Filt Rate 95 ml/min (>60); GFR (African American) 115 ML/MIN (>60); Globulin 3.2 gm/dl (1.3-3.2); Glucose 70 mg/dL (74-106); HDL Cholesterol 48 mg/dL (27-67); LDL Cholesterol 57 mg/dL (0-130); Potassium 4.4 mmoL/L (3.5-5.1); Sodium 140 mmol/L (136-145); Total Protein,Serum 7.2 gm/dL (6.4-8.2); Triglycerides 118 mg/dL (30-200); VLDL Cholesterol 24 mg/dL (0-40)
[2019-04-11 19:48] LABS: Hemoglobin A1C 5.9 % (0.0-7.0)
== END ==
PROVIDERS: Visit Provider Internal Medicine Adolescent Medicine
DX: I10 Essential (primary) hypertension (principal); E11.9 Type 2 diabetes mellitus without complications; Z79.84 Long term (current) use of oral hypoglycemic drugs
CPT/HCPCS: 36415; 80053; 80061; 83036

== ENCOUNTER → 2019-09-19 09:09 | Outpatient (CLI) | payer BC, SELFPAY ==
[2019-09-19 10:28] LABS: Basophils % 0.7 % (0.1-2.0); Eosinophils # 0.3 K/mm3 (0.0-0.4); Eosinophils % 4.9 % (0.1-12.0); Hematocrit 48.8 % (42.0-52.0); Hemoglobin 15.7 g/dL (14.1-18.0); Lymphocytes # 1.5 K/mm3 (0.7-4.5); Lymphocytes % 24.6 % (10-50); Mean Corpuscular HGB Conc 32.1 g/dL (31.8-35.4); Mean Corpuscular Hemoglobin 31.3 pg (27.0-31.2); Mean Corpuscular Volume 97.3 fl (80-94); Mean Platelet Volume 9.3 fl (7.4-10.4); Monocytes # 0.3 K/mm3 (0.1-1.0); Monocytes % 5.1 % (1.7-9.3); Neutrophils # 3.8 K/mm3 (1.8-7.8); Neutrophils % 64.7 % (37.0-80.0); Platelet Count 160 K/mm3 (142-424); Red Blood Count 5.02 M/mm3 (4.60-6.20); Red Cell Distribution Width 13.9 % (11.5-17.5); White Blood Count 5.9 K/mm3 (4.8-10.8)
[2019-09-19 10:41] LABS: Alanine Aminotransferase 9 U/L (12-78); Albumin Level 4.3 g/dl (3.5-5.0); Albumin/Globulin Ratio 1.7 (1.1-1.8); Alkaline Phosphatase 50 U/L (38-126); Anion Gap 9.6 mEq/L (5-15); Aspartate Amino Transferase 16 U/L (17-59); Bilirubin,Total 0.6 mg/dl (0.2-1.3); Blood Urea Nitrogen 12 mg/dl (9-20); Calcium 9.6 mg/dl (8.4-10.2); Carbon Dioxide 29 mmol/L (22.0-30.0); Chloride 105 mmol/L (98-107); Chol/HDL Ratio 2.2 (1-3.5); Cholesterol 127 mg/dl (140-200); Estimated Glomerular Filt Rate 100 ml/min (>60); GFR (African American) 121 ML/MIN (>60); Globulin 2.5 g/dL (1.3-3.2); Glucose 97 mg/dl (74-100); HDL Cholesterol 58 mg/dl (40-60); Potassium 4.6 mmoL/L (3.5-5.1); Sodium 139 mmol/L (136-145); Total Protein,Serum 6.8 g/dl (6.3-8.2); Triglycerides 68 mg/dl (30-150); Uric Acid 5.9 mg/dl (3.5-8.5); VLDL Cholesterol 14 mg/dL (0-40)
[2019-09-19 10:52] LABS: Direct LDL Cholesterol 66.59 mg/dL (100-129)
[2019-09-19 11:11] LABS: Hemoglobin A1C 5.9 % (4.0-6.0)
== END ==
PROVIDERS: Visit Provider Internal Medicine Adolescent Medicine
DX: I25.10 Atherosclerotic heart disease of native coronary artery without angina pectoris (principal); M10.9 Gout, unspecified; E11.9 Type 2 diabetes mellitus without complications; Z79.84 Long term (current) use of oral hypoglycemic drugs
CPT/HCPCS: 36415; 80053; 80061; 83036; 84550; 85025

== ENCOUNTER → 2020-01-17 13:27 | Outpatient (CLI) | payer BC, SELFPAY ==
--- NOTE | 2020-01-17 13:28 | CA_ITS ---
APPROVED REPORT EXAM: Comprehensive 2D, Doppler, and color-flow Echocardiogram Fractionation Plant Supervisor: Jacinta Disla RVT Ht: 6 ft 1 in Wt: 291lbs BSA: 2.52 BP: 157/99 mmHg Indications: CM,HTN,HLD,SMOKER,PEDRO 2D Dimensions LVOT 2.31 cm (M/F) 1.5-2.5 M-Mode Dimensions RVDd 3.26 cm (0.9-2.6) LVDd 5.00 cm (3.5-5.7) LVDs 3.80 cm (3.5-5.7) IVSd 0.63 cm (0.6-1.1) PWd 0.58 cm (0.6-1.1) EF (Teich) 47.50% FS 24.00% EDV (Teich) 118.20 mL ESV (Teich) 62.00 mL LV Diastology E/A Ratio 1.02 Mitral Valve MV A Velocity 79.00 (40-130 cm/s) Left Ventricle Left atrium is normal size, left ventricle is normal size, there is no concentric left ventricular hypertrophy, visually estimated ejection fraction 55% with no regional wall motion abnormality. Diastolic parameters are within normal range. Right Ventricle Right atrium is normal size, right ventricle is mildly enlarged with normal contractility. Aortic Valve Aortic valve is minimally thickened and fibrosed, there is no aortic stenosis or aortic insufficiency. Mitral Valve Mitral valve is grossly normal, there is mild mitral regurgitation. Tricuspid Valve Tricuspid valve is grossly normal, there is mild tricuspid regurgitation. Pulmonic Valve Pulmonic valve is poorly visualized. Great Vessels Aortic root is normal size. Pericardium No significant pericardial effusion noted. Conclusion 1. Normal left ventricular size, preserved left ventricular systolic function. Visually estimated ejection fraction 55% with no regional wall motion abnormality, diastolic parameters are within normal range. 2. Mildly enlarged right ventricle with normal contractility. 3. Mild mitral and tricuspid regurgitation. 4. No significant pericardial effusion noted. Electronically signed by : Jas Laboy, 01/17/2020 22:18:00
== END ==
PROVIDERS: PCP Internal Medicine Adolescent Medicine; Visit Provider Internal Medicine Cardiovascular Disease
DX: I34.0 Nonrheumatic mitral (valve) insufficiency (principal); I42.9 Cardiomyopathy, unspecified; R60.0 Localized edema
CPT/HCPCS: 93306

== ENCOUNTER → 2020-01-25 11:10 | Outpatient (CLI) | payer BC, SELFPAY ==
--- NOTE | 2020-01-25 | CA_ITS ---
APPROVED REPORT Exam: Exercise Treadmill Technologist: Grecia Krueger, Ht: 6 ft 1 in Wt: 253 lbs BSA: 2.38 m2 HR: 68 bpm BP: 139/86 mmHg Rhythm: NSR, RIGHT AXIS DEVIATION Medical History Medical History: HTN, Hyperlipidemia, Diabetic ??? Noninsulin, Smoking Medications: Lisinopril,,,,, Metoprolol,,,,, Asa,,,,, Metformin,,,,, BRILINTA,,,,, Celecoxib,,,,, JaRDiance,,,,, LiVALO,,,,, Cardiac Risk Factors: HTN, Hyperlipidemia, Diabetes (non-insulin), FHX of CAD, Smoking Stress Test Details Test: Jc HR Resting HR: 76 bpm Max Heart Rate (APMHR): 164 bpm Max HR Achieved: 142 bpm Target HR (85% APMHR): 139 bpm % of APMHR: 86 Recovery HR: 114 bpm BP Resting BP: 139.0/86.0 mmHg Max BP: 188.0/85.0 mmHg Recovery BP: 188.0/85.0 mmHg ECG Resting ECG: NSR, RIGHT AXIS DEVIATION Maximum ST Deviation: 3 mm Clinical Exercise duration: 07:01 min Highest Stage Achieved: Exercise capacity: 10.1 METs Stress ECG Conclusion PATIENT EXERCISED 7:00 ON JC PROTOCOL WITH MAX HEART RATE 140 BPM WHICH IS 85% OF PM FOR AGE. MAX BP 188/85. METS =10.1. TEST STOPPED DUE TO SOA AND LEG FATIGUE. NO CHEST PAIN. OCCASIONAL PVC. NORMAL ST RESPONSE TO EXERCISE. NORMAL GXT. MYOVIEW IMAGES REPORTED SEPARATELY. Electronically signed by : Geo Luis, 01/30/2020 12:54:18
--- NOTE | 2020-01-25 11:23 | NM_ITS ---
APPROVED REPORT Exam: Nuclear Stress Test Indication: CAD, HTN, DM, HYPERLIPIDEMIA, FM H, C.P., CESIA Patient Location: Outpatient Stress Tech: Jennifercinthia Krueger AR Tech:Yakelin RiosTRUDY RT (R)(N)(M) Ht: 6 ft 1 in Wt: 253 lbs HR: 68 bpm BP: 139/86 mmHg BSA: 2.38 m2 BMI: 33.3 Procedure: Patient exercised on Jc protocol 7:00 minutes and sec, resting heart rate 68 bpm, resting blood pressure 139/86 mmHg, with exercise maximum heart rate achived was 140 bpm which is 85 % of the maximum predicted heart rate and blood pressure was 184/80 mmHg. Test was stopped due to SOA. Patient has exercise capacity, achieved 7 METs of workload on treadmill, the blood pressure response to exercise was . Cardiac Stress and Resting SPECT Images: Cardiac Stress and Resting SPECT images were obtained using technetium 99m Myoview 31.0 mCi stress and 10.97 mCi at rest. EF 63%, normal Fixed decrease activity inferior wall which may be due to diaphragmatic attenuation or prior infarction No reversible defects Conclusion: EF 63%, normal Fixed decrease activity inferior wall which may be due to diaphragmatic attenuation or prior infarction No reversible defects Electronically signed by : Dell Hardin MD 01/27/2020 12:05:27
[2020-01-25 11:36] LABS: Basophils # 0.2 K/mm3 (0-0.2); Basophils % 2.8 % (0.1-2.0); Eosinophils # 0.4 K/mm3 (0.0-0.4); Eosinophils % 4.7 % (0.1-12.0); Hemoglobin 17.3 g/dL (14.1-18.0); Lymphocytes # 1.7 K/mm3 (0.7-4.5); Lymphocytes % 22.3 % (10-50); Mean Corpuscular Hemoglobin 33.4 pg (27.0-31.2); Mean Corpuscular Volume 104.4 fl (80-94); Mean Platelet Volume 11.2 fl (7.4-10.4); Monocytes # 0.4 K/mm3 (0.1-1.0); Monocytes % 5.1 % (1.7-9.3); Neutrophils # 5.2 K/mm3 (1.8-7.8); Neutrophils % 67.9 % (37.0-80.0); Platelet Count 159 K/mm3 (142-424); Red Blood Count 5.17 M/mm3 (4.60-6.20); Red Cell Distribution Width 17.5 % (11.5-17.5); White Blood Count 7.7 K/mm3 (4.8-10.8)
[2020-01-25 12:04] LABS: Chloride 106 mmol/L (98-107); Sodium 138 mmol/L (136-145)
[2020-01-25 12:05] LABS: Potassium 4.9 mmoL/L (3.5-5.1)
[2020-01-25 12:07] LABS: Alanine Aminotransferase 11 U/L (12-78); Albumin Level 4.4 g/dl (3.5-5.0); Alkaline Phosphatase 52 U/L (38-126); Aspartate Amino Transferase 17 U/L (17-59); Bilirubin,Direct 0.1 mg/dl (0.0-0.4); Bilirubin,Indirect 0.8 mg/dL (0.0-0.9); Bilirubin,Total 0.9 mg/dl (0.2-1.3); Bilirubin,Unconjugated 0.8 mg/dL (0.0-1.1); Blood Urea Nitrogen 12 mg/dl (9-20); Calcium 9.5 mg/dl (8.4-10.2); Carbon Dioxide 25 mmol/L (22.0-30.0); Cholesterol 126 mg/dl (140-200); Estimated Glomerular Filt Rate 100 ml/min (>60); GFR (African American) 121 ML/MIN (>60); Glucose 95 mg/dl (74-100); Triglycerides 61 mg/dl (30-150); VLDL Cholesterol 12 mg/dL (0-40)
[2020-01-25 12:08] LABS: Chol/HDL Ratio 2.3 (1-3.5); HDL Cholesterol 55 mg/dl (40-60)
[2020-01-25 12:18] LABS: Direct LDL Cholesterol 69.08 mg/dL (100-129)
[2020-01-25 12:23] LABS: Free T4 (Free Thyroxine) 1.21 ng/dl (0.78-2.19)
[2020-01-25 12:38] LABS: Thyroid Stimulating Hormone 1.29 uIU/mL (0.465-4.68)
== END ==
PROVIDERS: PCP Internal Medicine Adolescent Medicine; Visit Provider Nurse Practitioner Family
DX: R06.09 Other forms of dyspnea (principal); I25.10 Atherosclerotic heart disease of native coronary artery without angina pectoris; E78.2 Mixed hyperlipidemia; E11.9 Type 2 diabetes mellitus without complications; R53.83 Other fatigue; I42.9 Cardiomyopathy, unspecified; M25.512 Pain in left shoulder
CPT/HCPCS: 36415; 78452; 80048; 80061; 80076; 84439; 84443; 85025; 93017; A9502

== ENCOUNTER → 2020-09-21 11:30 | Outpatient (CLI) | payer BC, SELFPAY ==
[2020-09-21 12:03] LABS: Basophils # 0.1 K/mm3 (0-0.2); Basophils % 0.6 % (0.1-2.0); Eosinophils # 0.3 K/mm3 (0.0-0.4); Eosinophils % 3.9 % (0.1-12.0); Hematocrit 50.8 % (42.0-52.0); Hemoglobin 16.7 g/dL (14.1-18.0); Lymphocytes # 1.3 K/mm3 (0.7-4.5); Lymphocytes % 18.1 % (10-50); Mean Corpuscular HGB Conc 32.8 g/dL (31.8-35.4); Mean Corpuscular Hemoglobin 31.7 pg (27.0-31.2); Mean Corpuscular Volume 96.5 fl (80-94); Mean Platelet Volume 8.8 fl (7.4-10.4); Monocytes # 0.4 K/mm3 (0.1-1.0); Monocytes % 5.7 % (1.7-9.3); Neutrophils # 5.3 K/mm3 (1.8-7.8); Neutrophils % 71.6 % (37.0-80.0); Platelet Count 155 K/mm3 (142-424); Red Blood Count 5.26 M/mm3 (4.60-6.20); Red Cell Distribution Width 14.1 % (11.5-17.5); White Blood Count 7.4 K/mm3 (4.8-10.8)
[2020-09-21 12:17] LABS: Hemoglobin A1C 6.4 % (4.0-6.0)
[2020-09-21 12:37] LABS: Chloride 106 mmol/L (98-107); Potassium 4.4 mmoL/L (3.5-5.1); Sodium 141 mmol/L (136-145)
[2020-09-21 12:39] LABS: Alanine Aminotransferase 15 U/L (12-78); Aspartate Amino Transferase 20 U/L (17-59); Blood Urea Nitrogen 14 mg/dl (9-20); Estimated Glomerular Filt Rate 100 ml/min (>60); GFR (African American) 121 ML/MIN (>60)
[2020-09-21 12:40] LABS: Albumin Level 4.8 g/dl (3.5-5.0); Albumin/Globulin Ratio 1.6 (1.1-1.8); Alkaline Phosphatase 62 U/L (38-126); Anion Gap 10.4 mEq/L (5-15); Bilirubin,Total 0.9 mg/dl (0.2-1.3); Calcium 9.6 mg/dl (8.4-10.2); Carbon Dioxide 29 mmol/L (22.0-30.0); Chol/HDL Ratio 2.2 (1-3.5); Cholesterol 121 mg/dl (140-200); Glucose 103 mg/dl (74-100); HDL Cholesterol 55 mg/dl (40-60); Total Protein,Serum 7.8 g/dl (6.3-8.2); Triglycerides 81 mg/dl (30-150); VLDL Cholesterol 16 mg/dL (0-40)
[2020-09-21 12:51] LABS: Direct LDL Cholesterol 50.54 mg/dL (100-129)
== END ==
PROVIDERS: Visit Provider Internal Medicine Adolescent Medicine
DX: I25.10 Atherosclerotic heart disease of native coronary artery without angina pectoris (principal); E11.9 Type 2 diabetes mellitus without complications; Z79.84 Long term (current) use of oral hypoglycemic drugs
CPT/HCPCS: 36415; 80053; 80061; 83036; 85025

== ENCOUNTER → 2021-01-18 10:09 | Outpatient (CLI) | payer BC, SELFPAY ==
[2021-01-18 11:02] LABS: Alanine Aminotransferase 14 U/L (12-78); Albumin Level 4.6 g/dl (3.5-5.0); Albumin/Globulin Ratio 1.7 (1.1-1.8); Alkaline Phosphatase 62 U/L (38-126); Anion Gap 14.5 mEq/L (5-15); Aspartate Amino Transferase 19 U/L (17-59); Bilirubin,Total 1.1 mg/dl (0.2-1.3); Blood Urea Nitrogen 17 mg/dl (9-20); Calcium 9.4 mg/dl (8.4-10.2); Carbon Dioxide 25 mmol/L (22.0-30.0); Chloride 107 mmol/L (98-107); Estimated Glomerular Filt Rate 100 ml/min (>60); GFR (African American) 121 ML/MIN (>60); Globulin 2.7 g/dL (1.3-3.2); Glucose 123 mg/dl (74-100); Potassium 4.5 mmoL/L (3.5-5.1); Sodium 142 mmol/L (136-145); Total Protein,Serum 7.3 g/dl (6.3-8.2)
[2021-01-18 11:05] LABS: Hemoglobin A1C 6.5 % (4.0-6.0)
== END ==
PROVIDERS: Visit Provider Internal Medicine Adolescent Medicine
DX: E11.9 Type 2 diabetes mellitus without complications (principal); Z79.84 Long term (current) use of oral hypoglycemic drugs
CPT/HCPCS: 36415; 80053; 83036

== ENCOUNTER 2021-01-21 18:12 | Emergency (ER) | payer OTHER, BC, SELFPAY ==
[2021-01-21 18:15] VITALS: BP 137/85; PULSE 89; RESP 18; TEMP 36.6; O2SAT 98; BMI 34.2
--- NOTE | 2021-01-21 18:24 | PC.NURSE ---
PATIENT REFUSED C-COLAR AT THIS TIME. STATED, I JUST HAVE A SORE NECK.
--- NOTE | 2021-01-21 18:24 | PC.NURSE ---
C-COLAR APPLIED UPON ARRIVAL
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
[2021-01-21 19:47] VITALS: BP 119/60; PULSE 65; RESP 18; TEMP 36.9; O2SAT 96
== END 2021-01-21 19:58 | disposition home or self-care (01) ==
PROVIDERS: Emergency Provider Family Medicine; PCP Internal Medicine Adolescent Medicine
DX: M54.2 Cervicalgia (principal); V43.02XA Car driver injured in collision with other type car in nontraffic accident, initial encounter; Y92.488 Other paved roadways as the place of occurrence of the external cause
CPT/HCPCS: 70450; 72125; 99282

== ENCOUNTER → 2021-02-06 15:46 | Outpatient (CLI) | payer BC, SELFPAY ==
--- NOTE | 2021-02-06 15:52 | XR_ITS ---
PROCEDURE: XR HIP RT 2-3V W/PELVIS CLINICAL INDICATION: LOW BACK PAIN AT MUTIPLE SITES, HIP PAIN COMPARISON: No exams were available for comparison FINDINGS: No fracture or dislocation. There are minimal osteoarthritic changes. No lytic or blastic change. IMPRESSION: Minimal osteoarthritic change right hip Dictated by: Dell Hardin MD 02/06/2021 18:06 Dell Hardin MD in [place] 02/06/2021 18:06
--- NOTE | 2021-02-06 15:52 | XR_ITS ---
PROCEDURE: XR SACROILIAC JOINT BI MIN 3V CLINICAL INDICATION: LOW BACK PAIN AT MUTIPLE SITES, HIP PAIN COMPARISON: No exams were available for comparison FINDINGS: No fracture or dislocation. No lytic or blastic change. There is normal mineralization. The SI joints have an unremarkable appearance. Other findings:None. IMPRESSION: Negative SI joints Dictated by: Dell Hardin MD 02/06/2021 18:09 Dell Hardin MD in [facility] 02/06/2021 18:09
--- NOTE | 2021-02-06 15:52 | XR_ITS ---
PROCEDURE: XR HIP LT 2-3V W/PELVIS CLINICAL INDICATION: LOW BACK PAIN AT MUTIPLE SITES, HIP PAIN COMPARISON: No exams were available for comparison FINDINGS: Minimal osteoarthritic changes are present involving the left hip. No fracture or dislocation. No lytic or blastic change. The left ilium appears larger than the right side and is of questionable clinical significance and could even be due to different angles of the ileum at the SI joint. IMPRESSION: Minimal osteoarthritic change of the left hip Left ilium appears larger than the right side of questionable clinical significance Dictated by: Dell Hardin MD 02/06/2021 18:08 Dell Hardin MD in [place] 02/06/2021 18:08
--- NOTE | 2021-02-06 15:52 | XR_ITS ---
PROCEDURE: XR LUMBAR SPINE MIN 4V CLINICAL INDICATION: LOW BACK PAIN AT MUTIPLE SITES, HIP PAIN COMPARISON: No exams were available for comparison FINDINGS: Normal alignment. No acute fracture or dislocation degenerative disc disease from L1-S1. No lytic or blastic change. There is some calcification of the aortoiliac vessels with suggestion of mild dilatation the mid abdominal aorta at approximately 3-4 cm. IMPRESSION: 1. Lumbar spondylosis. 2. Abdominal aortic aneurysm suspected. CT or ultrasound may confirm. Dictated by: Dell Hardin MD 02/06/2021 18:06 Dell Hardin MD in [place] 02/06/2021 18:06
== END ==
PROVIDERS: PCP Internal Medicine Adolescent Medicine; Visit Provider Internal Medicine Adolescent Medicine
DX: M54.5 Low back pain (principal); M25.552 Pain in left hip; M25.551 Pain in right hip; M53.3 Sacrococcygeal disorders, not elsewhere classified
CPT/HCPCS: 72110; 72202; 73502

== ENCOUNTER → 2021-02-11 18:02 | Outpatient (CLI) | payer BC, SELFPAY ==
[2021-02-11 19:06] LABS: Blood Urea Nitrogen 12 mg/dl (9-20); Estimated Glomerular Filt Rate 100 ml/min (>60); GFR (African American) 121 ML/MIN (>60)
== END ==
PROVIDERS: Visit Provider Internal Medicine Adolescent Medicine
DX: I70.0 Atherosclerosis of aorta (principal)
CPT/HCPCS: 36415; 82565; 84520

== ENCOUNTER → 2021-02-13 10:48 | Outpatient (CLI) | payer BC, SELFPAY ==
--- NOTE | 2021-02-13 10:52 | CT_ITS ---
PROCEDURE INFORMATION: Exam: CTA Angiogram of the Abdominal Aorta and Bilateral Lower Extremities (Run-off) With IV Contrast Exam date and time: 02/13/2021 10:52 AM Age: 55 years old Clinical indication: Pain; Other: Bilateral; Additional info: Calcification of abdominal aorta TECHNIQUE: Imaging protocol: CT angiogram of the infrarenal abdominal aorta, pelvis and bilateral lower extremities with IV iodinated contrast. 3D rendering (Not supervised by radiologist): MIP and/or 3D reconstructed images were created by the technologist. Radiation optimization: All CT scans at this facility use at least one of these dose optimization techniques: automated exposure control; mA and/or kV adjustment per patient size (includes targeted exams where dose is matched to clinical indication); or iterative reconstruction. Contrast material: ISOVUE; Contrast volume: 110 ml; Contrast route: INTRA-ARTERIAL (ARTERIAL); COMPARISON: CR XR HIP LT 2-3V W/PELVIS 02/06/2021 3:56 PM FINDINGS: Aorta: No abdominal aortic aneurysm, in the visualized infrarenal abdominal aorta. Mild mixed hard and soft atherosclerotic plaque in the aorta. No acute dissection. No significant aortic stenosis. Mesenteric arteries: Inferior mesenteric artery is patent with no significant stenosis. Note that the celiac artery and superior mesenteric artery were not included in the field of view. Right iliac arteries: Mild atherosclerotic plaque in the right common iliac and internal iliac arteries with very mild stenosis, less than 25 %. No significant plaque seen in the right external iliac artery. No occlusion. Right femoral/popliteal arteries: Mild atherosclerotic plaque in the right common femoral artery, very mild narrowing less than 25%. Unremarkable right deep femoral artery. No stenosis or occlusion. Minimal plaque in the right superficial femoral artery, no significant stenosis or occlusion. Very mild plaque in the right popliteal artery, narrowing less than 25%, no significant stenosis or occlusion. Right infrapopliteal arteries: There is three-vessel runoff in the right calf. No significant stenosis or occlusion. Anterior tibial, tibial-peroneal trunk, posterior tibial and peroneal arteries are patent to the ankle. Left iliac arteries: Mild atherosclerotic plaques in the left common iliac and internal iliac arteries, with very mild narrowing less than 25%. No significant plaque visualized in the left external iliac artery; no significant stenosis or occlusion. Left femoral/popliteal arteries: Normal left common femoral artery, no stenosis or occlusion. Normal left deep femoral artery, no stenosis or occlusion. Normal left superficial femoral artery, no stenosis or occlusion. Normal left popliteal artery, no stenosis or occlusion. Left infrapopliteal arteries: Three-vessel runoff in the left calf. No significant stenosis or occlusion. Left anterior tibial, tibial-peroneal trunk, posterior tibial and peroneal arteries are patent to the ankle. Liver: Visualized portion of right lobe of liver is unremarkable. Kidneys and ureters: Visualized lower portions of both kidneys appear normal, with no mass or hydronephrosis. Upper poles are partially clipped off the field of view. The ureters are normal. Bowel: There is no evidence of intestinal perforation or obstruction, as visualized. Appendix: No findings of appendicitis. Bladder: The bladder is normal. Reproductive: A few prostate calcifications. Minimal nonspecific prostate enlargement 5.1 x 4.0 x 3.4 cm. Seminal vesicles are unremarkable. Intraperitoneal space: There is no free intraperitoneal air. There is no significant free intrape
== END ==
PROVIDERS: PCP Internal Medicine Adolescent Medicine; Visit Provider Internal Medicine Adolescent Medicine
DX: I70.0 Atherosclerosis of aorta (principal)
CPT/HCPCS: 75635; Q9967

== ENCOUNTER → 2021-03-07 08:09 | Outpatient (POV) | payer BC, SELFPAY ==
[2021-03-07 08:45] VITALS: BP 122/83; PULSE 76; RESP 18; TEMP 36.4; O2SAT 96; BMI 34.9
--- NOTE | 2021-03-07 09:34 | HMH.PMCON ---
Assessment and Plan (1) Low back pain Status: Chronic Category: Medical Code(s): M54.5 - Low back pain (2) Lumbar radiculopathy Status: Chronic Category: Medical Code(s): M54.16 - Radiculopathy, lumbar region - Assessment and plan all Dx Assessment and Plan for all problems:: Patient has tried and failed conservative therapies of home stretching and anti-inflammatories. He is currently taking gabapentin. He does say that he has tried physical therapy in the past which is made his pain worse. He he says therapy is not helping him, however, is willing to continue with therapy. We will continue the patient with physical therapy and we will schedule an MRI of his lumbar spine to determine pathology of his pain. We will plan to see him back after MRI for reevaluation of symptoms. He will continue with home stretching, anti-inflammatories, and gabapentin. Patient has been instructed to contact the clinic with any concerns before the next appointment. Dr. Romero has reviewed this note and agrees with this plan of care. This note was dictated using voice recognition software and make contain errors or omissions. HPI - Data of Consult Patient: new to practice Consult date: 03/07/21 Requesting Physician: Sherry Cadet APRN Primary Care Provider: Carlton Rodrigues MD - Consult Narrative Reason for consult: Low back pain History of present illness: Mr. Lomeli is a 55 year old male who presents today for consultation for left low back pain and right lateral thigh pain. Patient says he has had chronic low back pain for 14 to 15 years, however, his pain has worsened over the last 6 months. 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 He says that his pain worsens while at work. He works 8-hour days, however, was recently decreased to 6-hour days and this is helped significantly with his pain. He did have a lumbar spine surgery at [facility] in [facility] approximately 14 to 15 years ago. He says that he is unsure what type of surgery he had. He reports his pain to be in the left low back area radiating intermittently to the right low back area and into his right lateral thigh. The right lateral thigh pain causes severe burning which he describes as gasoline on fire on the leg . He says he is unable to sit for very long, stand for very long, or lie for very long. He says that standing in 1 position causes him the worst pain. He reports the pain to be constant in nature and sharp. He is taking Tylenol, gabapentin, and Celebrex with no significant relief. He has tried physical therapy in the past with no significant relief. He and I did discuss an repeat round of physical therapy. He is willing to attempt therapy once again, however, he does say that physical therapy worsened his pain at his last visit. He did undergo traction which made the pain worse. Patient says he has decreased sensation to his right lower extremity. He reports that he feels his right leg is going to give out . He says this has been ongoing since his spine surgery. The patient says also when bending forward he has severe pain when rising from a bending position. He has not undergone injective therapy. He does continue with modified home stretching. He rates his pain an 8 out of 10 today. Patient has not had any imaging, aside from x-rays of his lumbar spine. He also reports to be having some occasional left hand numbness, however, denies any neck pain at this time. The patient would like to undergo injective therapy. CC: Sherry Cadet APRN [facility] History Medical History: Reports:: Atherosclerotic Heart Disease, Coronary Artery Disease, Diabetes Mellitus Type 2, Hyperlipidemia, Hypertension Denies:: Cancer, Diabetes Mellitus Type 1, Internal Pacemaker, MRSA *Have you ever received a pneumonia vaccine?: No *Have you received a flu vaccine this season?: No Other Surgeries: Yes: Cardiac
== END ==
PROVIDERS: PCP Internal Medicine Adolescent Medicine; Visit Provider Clinical Nurse Specialist Family Health
DX: M54.5 Low back pain (principal); M54.16 Radiculopathy, lumbar region
CPT/HCPCS: 99202; G0463

== ENCOUNTER 2021-03-13 13:31 | Outpatient (RCR) | payer BC, SELFPAY ==
--- NOTE | 2021-03-13 15:01 | HMH.PTOPEV ---
PT Outpatient Evaluation Rehab PT Outpatient Evaluation Start: 03/13/21 13:58 Freq: Status: Active Protocol: Document 03/13/21 14:39 CHRYSTALGELA (Rec: 03/13/21 14:57 ASHLEY [id number]) Electronically Signed By Ever Leonard, PT 03/13/21 14:39 Outpatient Therapy Subjective History Subjective History Patient is a 55 year old male presenting to outpatient PT with reports of chronic LBP with BLE radicular symptoms. Patient reports that he underwent LS discectomy approx 15 years ago. Unable to specify which segements. Patient to received MRI today. Patient has been previously been being treated in pain management with some relief noted. Comorbidites include hx of diabetes, stent x 2, HTN and HL . Chief Complaint Pain,Stiff,Paresthesia, Weakness Symptom Type Ache Symptoms Relieved By Rest/Positioning,Prescription Meds,Activity Symptoms Aggravated By Sitting,Standing,Physical Activity,Walking Prior Functional Limitations Standing,Sitting,Squatting, Recreation Activity,Walking, Bending/Stooping Current Functional Limitations Housework,Standing,Sitting, Squatting,Recreation Activity, Walking,Bending/Stooping Symptom Description Intermittent Level of pain today (0-10) 2 Pain scale - at its best (0-10) 0 Pain scale - at its worst (0-10) 7 Lumbopelvic Eval Posture Thoracic Spine Posture Standing Position Increased Kyphosis Lumbar Spine Posture Standing Position Decreased Lordosis Assistive device Assistive Devices None / NA Palapation tenderness bilateral lumbar spinal tenderness Yes: L3-5 3/4 paraspinal tenderness Yes Lumbar/Sacral Palpation Findings Tenderness Accessory Movement L3 bilateral L4 bilateral L5 bilateral Range of Motion Lumbar Spine Active Flexion Range of 75 Motion (degrees) Lumbar Spine Active Extension Range of 12 Motion (degrees) Left Lumbar Spine Lateral Flexion Active 20 Range of Motion (degrees) Right Lumbar Spine Lateral Flexion 25 Active Range of Motion (degrees) Lumbar Spine ROM Limitations Soft Tissue Tightness,Bony
== END 2021-03-13 13:35 | disposition home or self-care (01) ==
LOC: PT 13:31
PROVIDERS: PCP Internal Medicine Adolescent Medicine; Visit Provider Clinical Nurse Specialist Family Health
DX: M54.5 Low back pain (principal)
CPT/HCPCS: 97163

== ENCOUNTER → 2021-03-13 14:27 | Outpatient (CLI) | payer BC, SELFPAY ==
--- NOTE | 2021-03-13 14:52 | MR_ITS ---
PROCEDURE: MR LUMBAR SPINE WO CON CLINICAL INDICATION: LBP Chronic low back pain with intermittent right-sided sciatica. Prior lumbar surgery COMPARISON: CT CT ANGIO ABDOMEN/FEMORAL from 02/13/2021 TECHNIQUE: Standard multiplanar multiecho sequences are performed without contrast. 3-D MIP and myelographic images are also rendered and reviewed FINDINGS: There is normal alignment. L1-L2: Small anterior osteophytes. Mild facet and ligamentum hypertrophic change. 2-3 mm retrolisthesis of L1. L2-L3: Bulging disc with facet and ligamentum hypertrophic change and anterior osteophytes. Bulging disc noted. There is facet and ligamentum hypertrophic change with right lateral recess narrowing and severe right-sided foraminal narrowing. There is mild left lateral recess and moderate left-sided foraminal narrowing.. There is a broad-based disc osteophyte complex extending from the anterior to the lateral and posterior lateral aspect of the disc with small broad-based central right paracentral and foraminal disc protrusion. There is canal stenosis. L3-L4: Mild bulging disc along with moderate facet and ligamentum hypertrophy causing bilateral lateral recess narrowing and moderate bilateral foraminal narrowing with canal stenosis L4-5: Mild bulging disc eccentric toward the right with facet and ligamentum hypertrophy and bilateral foraminal narrowing slightly greater on the right. L5-S1: Bulging disc eccentric toward the right with right lateral recess narrowing along with facet and ligamentum hypertrophy with severe bilateral foraminal narrowing. Type 2 endplate changes. The asymmetric bulging disc is abutting the right S1 nerve root anteriorly. No extruded herniated disc evident. IMPRESSION: Abnormal MRI of the lumbar spine with multilevel lumbar spondylosis with bulging discs and facet and ligamentum hypertrophy causing canal stenosis, lateral recess narrowing, and foraminal narrowing. Please see above for detailed description at each level. Dictated by: Dell Hardin MD 03/14/2021 09:13 Dell Hardin MD in [place] 03/14/2021 09:13
== END ==
LOC: RAD 14:36
PROVIDERS: PCP Internal Medicine Adolescent Medicine; Visit Provider Clinical Nurse Specialist Family Health
DX: M54.5 Low back pain (principal)
CPT/HCPCS: 72148; 76376

== ENCOUNTER → 2021-03-18 09:10 | Outpatient (POV) | payer BC, SELFPAY ==
[2021-03-18 09:17] VITALS: BP 139/87; PULSE 68; RESP 18; O2SAT 96; BMI 34.9
--- NOTE | 2021-03-18 10:15 | HMH.PAINSOAP ---
[facility] Pain Management SOAP Note Subjective:: Patient presents today. Patient is being treated for chronic low back pain with lumbar symptoms. Patient recently underwent an MRI of his lumbar. He is here today to review his imaging. The patient is having pain in his low back and into the right leg with a burning sensation which he describes as gas fire to the right outer thigh area . He has had surgical intervention more than 15 years ago at [facility]. He says that he is having significant pain into the right lower extremity to the point that he feels his leg is going to give out. Patient says following the surgery he had to learn to walk again with the right lower extremity. He feels like he is having muscle tearing into his right lower extremity as well. Patient says that he does take Tylenol throughout the day which gives him some relief along with gabapentin. The patient's gabapentin was ordered twice daily, however, due to drowsiness he is only able to take the medication at bedtime. It does help with sleeping at night. The patient does also take Brilinta that is prescribed by Dr. Spann/Dr. Luis. Patient says he has no pain with walking, however, has significant pain with sitting with repositioning often. He also says that leaning forward gives him significant relief. 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 He also reports paresthesia into the right lower remedy. He denies any saddle anesthesia or changes in bowel or bladder habit. Patient did have to decrease with his work hours. He decreased from 10-hour days to 6-hour days. This is helped tremendously with his pain. He has worsening pain when he is standing on concrete. The patient is currently undergoing physical therapy which was recommended to lose weight, however, due to his work schedule he can only do 1 day weekly. He does continue with home stretching. He is unable to take anti-inflammatories due to Brilinta. Ice and heat therapies have not helped the patient. Review of Systems General: No recent weight changes, no fever, no sleep disturbances Respiratory: No cough, no shortness of air, no recurring pulmonary infections Cardiovascular/peripheral vascular: No chest pain, no palpitations, no edema, no shortness of breath Gastrointestinal: No new onset incontinence, normal bowel movements reported Genitourinary: No new onset incontinence Musculoskeletal: Low back pain with radiation into right lower extremity with heaviness and weakness into right lower extremity Psychiatric: [Normal mood/affect] Neurological: Heaviness or weakness right lower extremity Objective:: Physical exam General: Alert and oriented x3, no acute distress, pleasant and cooperative, [on room air] Lungs: Respirations even and unlabored, symmetrical chest expansion Eyes: PERRL Musculoskeletal: Flexion and extension of [] lumbar [spine] somewhat guarded secondary to pain, strength in upper and lower extremities [5/5], [antalgic gait noted] Neurological: Speech clear, [probation and parole officer equal], no gross sensory deficit Assessment:: 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 We will also schedule the patient for an epidurogram at that time. Patient is exhibiting neurogenic claudication type symptoms and per his MRI he does have ligamentum hypertrophy. We will follow-up with him after he is lumbar epidural steroid injection #1 with epidurogram and we will discuss a further plan of care at that time. The patient is having heaviness and weakness into his lower extremity on the right side. He is having a fire-like sensation to the right thigh area . Patient has had the burning sensation to his right leg since surgery, greater than 15 years. He denies any nerve studies to this area in the past. He was told it is likel
--- NOTE | 2021-03-21 15:50 | PC.NURSE ---
Spoke with pts after getting approval from Toby to hold Brilinta starting 03/30, 6 days prior to scheduled procedure on 04/05.
== END ==
PROVIDERS: PCP Internal Medicine Adolescent Medicine; Visit Provider Clinical Nurse Specialist Family Health
DX: M51.16 Intervertebral disc disorders with radiculopathy, lumbar region (principal); I73.9 Peripheral vascular disease, unspecified
CPT/HCPCS: 99212; G0463

== ENCOUNTER 2021-04-05 11:18 | Day surgery (SDC) | payer BC, SELFPAY ==
[2021-04-05 11:35] VITALS: BP 133/73; PULSE 61; RESP 18; TEMP 36.8; O2SAT 99; BMI 34.9
[2021-04-05 12:03] VITALS: BP 138/76; PULSE 58; RESP 18; O2SAT 97
[2021-04-05 12:04] VITALS: BP 135/72; PULSE 59; RESP 18; O2SAT 96
[2021-04-05 12:20] VITALS: BP 107/71; PULSE 59; RESP 18; O2SAT 99
--- NOTE | 2021-04-05 14:50 | P.PCN_ITS ---
- Procedure Date: 04/05/21 Time: 14:50 Anesthesiologist:: Sukhwinder Romero MD Complications:: None Pre-procedure Diagnosis:: Degenerative disc disease of lumbar spine with lumbar radiculopathy symptoms Post-procedure Diagnosis:: Same Indications for Procedure:: Patient is a pleasant 55-year-old white male who we are treating for low back pain with lumbar radiculopathy symptoms. We will do a lumbar pleural steroid injection today to see if this helps with his pain symptoms. Procedure Details:: Informed consent was obtained and the risk and benefits of the procedure was explained to the patient. The patient was taken to the procedure room. The patient was placed prone on the procedure table. The patient was prepped and draped in sterile fashion. C-arm fluoroscopy was used to view the lumbar spine. Skin and subcutaneous tissues were anesthetized using lidocaine. I placed an 18-gauge epidural needle and advanced into the L4-L5 interspace using fluor oscopic guidance and [id number] to air. After confirmation of needle placement in the epidural space with dye I injected 2 mL of lidocaine 1.5% with Depo-Medrol 80 mg. Patient tolerated the procedure well with no complications. Plan and Disposition:: We will follow-up with him in 2 weeks. Will reevaluate symptoms at that time.
== END 2021-04-05 12:20 | disposition home or self-care (01) ==
LOC: SC.PAINP 11:20
PROVIDERS: PCP Internal Medicine Adolescent Medicine; Visit Provider Anesthesiology
DX: M51.16 Intervertebral disc disorders with radiculopathy, lumbar region (principal); I25.10 Atherosclerotic heart disease of native coronary artery without angina pectoris; E78.5 Hyperlipidemia, unspecified; I10 Essential (primary) hypertension; G47.33 Obstructive sleep apnea (adult) (pediatric); E11.9 Type 2 diabetes mellitus without complications; Z95.5 Presence of coronary angioplasty implant and graft; Z72.0 Tobacco use; Z79.82 Long term (current) use of aspirin; Z79.899 Other long term (current) drug therapy; Z79.84 Long term (current) use of oral hypoglycemic drugs
CPT/HCPCS: 62323; J1040; Q9966

== ENCOUNTER → 2021-04-20 07:20 | Outpatient (CLI) | payer BC, SELFPAY ==
[2021-04-20 07:46] LABS: Hematocrit 53.4 % (42.0-52.0); Mean Corpuscular HGB Conc 31.8 g/dL (31.8-35.4); Mean Corpuscular Hemoglobin 32.5 pg (27.0-31.2); Mean Corpuscular Volume 102.2 fl (80-94); Platelet Count 156 K/mm3 (142-424); Red Blood Count 5.23 M/mm3 (4.60-6.20); Red Cell Distribution Width 14.1 % (11.5-17.5); White Blood Count 7.3 K/mm3 (4.8-10.8)
[2021-04-20 08:28] LABS: Hemoglobin A1C 6.9 % (4.0-6.0)
[2021-04-20 08:54] LABS: Alanine Aminotransferase 19 U/L (12-78); Albumin Level 4.3 g/dl (3.5-5.0); Albumin/Globulin Ratio 1.5 (1.1-1.8); Alkaline Phosphatase 54 U/L (38-126); Anion Gap 16.1 mEq/L (5-15); Aspartate Amino Transferase 22 U/L (17-59); Bilirubin,Total 0.7 mg/dl (0.2-1.3); Blood Urea Nitrogen 16 mg/dl (9-20); Calcium 9.4 mg/dl (8.4-10.2); Carbon Dioxide 26 mmol/L (22.0-30.0); Chloride 103 mmol/L (98-107); Chol/HDL Ratio 2.3 (1-3.5); Cholesterol 108 mg/dl (140-200); Estimated Glomerular Filt Rate 100 ml/min (>60); GFR (African American) 121 ML/MIN (>60); Globulin 2.8 g/dL (1.3-3.2); Glucose 125 mg/dl (74-100); HDL Cholesterol 47 mg/dl (40-60); Potassium 5.1 mmoL/L (3.5-5.1); Sodium 140 mmol/L (136-145); Total Protein,Serum 7.1 g/dl (6.3-8.2); Triglycerides 80 mg/dl (30-150); Uric Acid 5.6 mg/dl (3.5-8.5); VLDL Cholesterol 16 mg/dL (0-40)
[2021-04-20 09:04] LABS: Direct LDL Cholesterol 47.94 mg/dL (100-129)
== END ==
PROVIDERS: Visit Provider Internal Medicine Adolescent Medicine
DX: I25.10 Atherosclerotic heart disease of native coronary artery without angina pectoris (principal); E11.9 Type 2 diabetes mellitus without complications; M10.9 Gout, unspecified; Z79.84 Long term (current) use of oral hypoglycemic drugs
CPT/HCPCS: 36415; 80053; 80061; 83036; 84550; 85014; 85018; 85048; 85049

== ENCOUNTER → 2021-04-30 09:27 | Outpatient (POV) | payer BC, SELFPAY ==
[2021-04-30 09:52] VITALS: BP 138/68; PULSE 72; RESP 18; O2SAT 98; BMI 34.9
--- NOTE | 2021-04-30 10:06 | HMH.PAINSOAP ---
[facility] Pain Management SOAP Note Subjective:: UA patient is a 55-year-old white female who presents today for follow-up. The patient did have #1 lumbar epidural steroid injection at L4-L5 area. The patient got 100% relief for 2 weeks. The pain is slowly returning, however, today the pain is a 0 out of 10. Overall he is doing well and is much more functional after the injection. Review of Systems General: No recent weight changes, no fever, no sleep disturbances Respiratory: No cough, no shortness of air, no recurring pulmonary infections Cardiovascular/peripheral vascular: No chest pain, no palpitations, no edema, no shortness of breath Gastrointestinal: No new onset incontinence, normal bowel movements reported Genitourinary: No new onset incontinence Musculoskeletal: No pain at this time Psychiatric: [Normal mood/affect] Neurological: [Denies weakness in extremities], [denies balance issues] Objective:: Physical exam General: Alert and oriented x3, no acute distress, pleasant and cooperative, [on room air] Lungs: Respirations even and unlabored, symmetrical chest expansion Eyes: PERRL Musculoskeletal: Flexion and extension of [] [spine] nonguarded, normal gait noted Neurological: Speech clear, no gross sensory deficit Assessment:: Degenerative disc disease lumbar spine with lumbar radiculopathy symptoms Plan:: Patient is doing well overall since his injection. Pain is a 0 out of 10 today. Patient will follow up with us as needed for repeat injections if the pain does return. This was the patient's #1 lumbar epidural steroid injection. Patient has been instructed to contact the clinic with any concerns before the next appointment. Dr. Romero has reviewed this note and agrees with this plan of care. This note was dictated using voice recognition software and make contain errors or omissions. [facility] History I have reviewed the patient's past medical history: Yes Medical History: Reports:: Atherosclerotic Heart Disease, Coronary Artery Disease, Hyperlipidemia, Hypertension, Myocardial Infarction Denies:: Cancer, Diabetes Mellitus Type 1, Diabetes Mellitus Type 2, Internal Pacemaker, MRSA, Seizures *Have you ever received a pneumonia vaccine?: Yes *Have you received a flu vaccine this season?: No Other Medical History: Denies: Blood Transfusion Reaction Other Surgeries: Yes: Cardiac Catheterization, Coronary Stent. No: Pacemaker Amputation: No Fractures: No - *Social History Smoking Status: Current every day smoker Tobacco Type: cigarettes # Packs/Day (cigarettes): 1 Alcohol Intake: never Alcohol Intake Frequency:: other Substance Use Type: denies use *Occupational Status:: employed Housing: house Household Members: spouse *Travel in the last 8 weeks: None Family Hx:: Diabetes, Heart Attack, Hyperlipidemia, Hypertension
== END ==
PROVIDERS: Visit Provider Clinical Nurse Specialist Family Health
DX: M51.16 Intervertebral disc disorders with radiculopathy, lumbar region (principal)
CPT/HCPCS: 99212; G0463

== ENCOUNTER → 2021-06-18 12:44 | Outpatient (CLI) | payer BC, SELFPAY | PROVIDERS: PCP Internal Medicine Adolescent Medicine; Visit Provider Nurse Practitioner Family | DX: Z20.822 Contact with and (suspected) exposure to COVID-19 (principal) | CPT/HCPCS: C9803; U0003; U0005 ==

== ENCOUNTER → 2021-08-14 12:30 | Outpatient (CLI) | payer BC, SELFPAY | PROVIDERS: Visit Provider Nurse Practitioner | DX: Z20.822 Contact with and (suspected) exposure to COVID-19 (principal) | CPT/HCPCS: C9803; U0003; U0005 ==

== ENCOUNTER 2021-08-23 14:23 | Day surgery (SDC) | payer BC, SELFPAY ==
[2021-08-23 14:37] VITALS: BP 151/83; PULSE 76; RESP 20; TEMP 36.8; O2SAT 97; BMI 34.9
[2021-08-23 15:23] VITALS: BP 142/76; PULSE 73; RESP 18; O2SAT 98
[2021-08-23 15:24] VITALS: PULSE 73; RESP 18; O2SAT 97
--- NOTE | 2021-08-23 15:29 | HMH.PMPROC ---
- Procedure Date: 08/23/21 Time: 15:29 Anesthesiologist:: Sukhwinder Romero MD Complications:: None Pre-procedure Diagnosis:: Degenerative disc disease of lumbar spine with lumbar radiculopathy symptoms Post-procedure Diagnosis:: Same Indications for Procedure:: Patient is a pleasant 55-year-old white male who we are treating for low back pain with lumbar radiculopathy symptoms. He did very well with his last lumbar epidural steroid injection. He was over 90 to 100% better for 2 to 3 weeks. His pain is just now starting to return. He presents for repeat lumbar pleural steroid injection under fluoroscopy today. Procedure Details:: Informed consent was obtained and the risk and benefits of the procedure was explained to the patient. The patient was taken to the procedure room. The patient was placed prone on the procedure table. The patient was prepped and draped in sterile fashion. C-arm fluoroscopy was used to view the lumbar spine. Skin and subcutaneous tissues were anesthetized using lidocaine. I placed an 18-gauge epidural needle and advanced into the L4-L5 interspace using fluoroscopic guidance and [id number] to air. After confirmation of needle placement in the epidural space with dye I injected 2 mL of lidocaine 1.5% with Depo-Medrol 80 mg. Patient tolerated the procedure well with no complications. Plan and Disposition:: We will follow-up with this patient 2 weeks. Will reevaluate his symptoms at that time.
[2021-08-23 15:35] VITALS: BP 136/79; PULSE 74; RESP 20; O2SAT 95
== END 2021-08-23 15:35 | disposition home or self-care (01) ==
LOC: SC.PAINP 14:24
PROVIDERS: PCP Internal Medicine Adolescent Medicine; Visit Provider Anesthesiology
DX: M51.16 Intervertebral disc disorders with radiculopathy, lumbar region (principal); I25.2 Old myocardial infarction; I25.10 Atherosclerotic heart disease of native coronary artery without angina pectoris; E78.5 Hyperlipidemia, unspecified; I10 Essential (primary) hypertension; G47.33 Obstructive sleep apnea (adult) (pediatric)
CPT/HCPCS: 62323; J1040; Q9966

== ENCOUNTER → 2021-08-23 15:52 | Outpatient (CLI) | payer BC, SELFPAY | PROVIDERS: Visit Provider Nurse Practitioner | DX: Z20.822 Contact with and (suspected) exposure to COVID-19 (principal) | CPT/HCPCS: C9803; U0003; U0005 ==

== ENCOUNTER → 2021-09-05 14:55 | Outpatient (POV) | payer BC, SELFPAY ==
[2021-09-05 15:27] VITALS: BP 149/92; PULSE 72; RESP 18; O2SAT 95; BMI 34.9
--- NOTE | 2021-11-28 07:57 | HMH.PAINSOAP ---
[facility] Pain Management SOAP Note Subjective:: Patient is a 56-year-old male who presents for follow-up today. Patient did have #2 lumbar epidural steroid injection at L4-5. The patient reports minimal relief after this injection. The patient did report 100% relief after first injection. Objective:: Flexion and extension of lumbar spine guarded normal gait noted. Assessment:: Of disc disease of lumbar spine with lumbar radiculopathy symptoms Plan:: The patient reports not doing well since his last injection. Reports pain 6 out of 10 today. Patient will follow-up in [address] Romero has reviewed this note and agrees with this plan of care. This note was dictated using voice recognition software and make contain errors or omissions. [facility] History I have reviewed the patient's past medical history: Yes Medical History: Reports:: Atherosclerotic Heart Disease, Coronary Artery Disease, Diabetes Mellitus Type 2, Hyperlipidemia, Hypertension, Myocardial Infarction Denies:: Cancer, Diabetes Mellitus Type 1, Internal Pacemaker, MRSA, Seizures *Have you ever received a pneumonia vaccine?: Yes *Have you received a flu vaccine this season?: Yes Other Medical History: Reports: Arthritis. Denies: Blood Transfusion Reaction Other Surgeries: Yes: Cardiac Catheterization, Coronary Stent. No: Pacemaker Amputation: No Fractures: No - *Social History Smoking Status: Current every day smoker Tobacco Type: cigarettes # Packs/Day (cigarettes): 1 Alcohol Intake: never Alcohol Intake Frequency:: other Substance Use Type: denies use *Occupational Status:: employed Housing: house Household Members: spouse *Travel in the last 8 weeks: None Family Hx:: Non-contributory, Other
== END ==
PROVIDERS: Visit Provider Clinical Nurse Specialist Family Health
DX: M51.16 Intervertebral disc disorders with radiculopathy, lumbar region (principal)
CPT/HCPCS: 99212; G0463

== ENCOUNTER → 2021-09-05 15:51 | Outpatient (CLI) | payer BC, SELFPAY | PROVIDERS: Visit Provider Nurse Practitioner | DX: Z20.822 Contact with and (suspected) exposure to COVID-19 (principal) | CPT/HCPCS: C9803; U0003; U0005 ==

== ENCOUNTER → 2021-09-07 10:06 | Outpatient (CLI) | payer BC, SELFPAY ==
[2021-09-07 11:18] LABS: Hemoglobin A1C 7.4 % (4.0-6.0)
[2021-09-07 11:38] LABS: Alanine Aminotransferase 13 U/L (12-78); Albumin Level 4.4 g/dl (3.5-5.0); Albumin/Globulin Ratio 1.9 (1.1-1.8); Alkaline Phosphatase 54 U/L (38-126); Anion Gap 12.1 mEq/L (5-15); Aspartate Amino Transferase 21 U/L (17-59); Blood Urea Nitrogen 14 mg/dl (9-20); Calcium 9.2 mg/dl (8.4-10.2); Carbon Dioxide 29 mmol/L (22.0-30.0); Chloride 104 mmol/L (98-107); Chol/HDL Ratio 2.5 (1-3.5); Cholesterol 105 mg/dl (140-200); Estimated Glomerular Filt Rate 99 ml/min (>60); GFR (African American) 120 ML/MIN (>60); Globulin 2.3 g/dL (1.3-3.2); Glucose 127 mg/dl (74-100); HDL Cholesterol 42 mg/dl (40-60); Potassium 5.1 mmoL/L (3.5-5.1); Sodium 140 mmol/L (136-145); Total Protein,Serum 6.7 g/dl (6.3-8.2); Triglycerides 84 mg/dl (30-150); VLDL Cholesterol 17 mg/dL (0-40)
[2021-09-07 11:48] LABS: Direct LDL Cholesterol 50.38 mg/dL (100-129)
== END ==
PROVIDERS: PCP Nurse Practitioner Family; Visit Provider Nurse Practitioner Family
DX: Z00.00 Encounter for general adult medical examination without abnormal findings (principal); I25.10 Atherosclerotic heart disease of native coronary artery without angina pectoris; I10 Essential (primary) hypertension; E11.9 Type 2 diabetes mellitus without complications; Z79.84 Long term (current) use of oral hypoglycemic drugs
CPT/HCPCS: 36415; 80053; 80061; 83036

== ENCOUNTER → 2021-09-23 12:49 | Outpatient (CLI) | payer BC, SELFPAY | PROVIDERS: Visit Provider Nurse Practitioner | DX: Z20.822 Contact with and (suspected) exposure to COVID-19 (principal) | CPT/HCPCS: C9803; U0003; U0005 ==

== ENCOUNTER → 2021-11-11 07:34 | Outpatient (CLI) | payer BC, SELFPAY ==
--- NOTE | 2021-11-11 07:35 | CA_ITS ---
APPROVED REPORT EXAM: Comprehensive 2D, Doppler, and color-flow Echocardiogram Regional Clinical Director: Jacinta Disla RVT Ht: 6 ft 1 in Wt: 271lbs BSA: 2.45 BP: 131/86 mmHg Indications: soa,hx nstemi,cad,dm,fatigue,htn,hld 2D Dimensions LVOT 2.48 cm (M/F) 1.5-2.5 LA Volume 21.50 mL LA Volume Index 8.77 mL/m2 (M/F) 16-34 M-Mode Dimensions RVDd 2.90 cm (0.9-2.6) LA Diam 3.73 cm (1.9-4.0) LVDd 2.95 cm (3.5-5.7) Ao Diam 3.79 cm (2.0-3.7) LVDs 1.97 cm (3.5-5.7) IVSd 0.93 cm (0.6-1.1) PWd 1.62 cm (0.6-1.1) EF (Teich) 63.70% FS 33.20% EDV (Teich) 33.60 mL TAPSE 2.68 (<1.7) ESV (Teich) 12.20 mL LV Diastology E Decel Time 227.00 (160-240 msec) E/A Ratio 1.4 MED E' 7.40 (< 7 cm/sec) E'/MED E' Ratio 12.95 (>14) LAT E' 11.60 (<10 cm/sec) E/LAT E' Ratio 8.26 (>14) Aortic Valve AO Peak GR. 3.60 mmHg Mitral Valve MV E Max Cesar. 96.00 (40-130 cm/s) MV A Velocity 68.00 (40-130 cm/s) E/A Ratio 1.41 MV Decel. Time 227.00 (160-240 ms) MV PHT 66.00 ms Pulmonary Valve PV Peak Velocity 78.00 (50-150 cm/s) Left Ventricle Left atrium normal size, left ventricle is normal size, visually estimated ejection fraction 50%, diastolic parameters are within normal range, there is mild posterolateral wall hypokinesis. Right Ventricle Right atrium and right ventricle are normal size and contractility. Aortic Valve Aortic valve is minimally thickened and fibrosed there is no aortic stenosis or aortic insufficiency. Mitral Valve Mitral valve is grossly normal, there is trace mitral regurgitation. Tricuspid Valve Tricuspid grossly normal, there is trace tricuspid regurgitation. Pulmonic Valve Pulmonic valve is poorly visualized. Great Vessels Aortic root is normal size. Inferior vena cava normal size with normal inspiratory collapse. Pericardium No significant pericardial effusion noted. Conclusion 1. Normal left ventricular size, visually estimated ejection fraction 50% with segmental wall motion abnormality described above, diastolic parameters are within normal range. 2. Trace mitral and tricuspid regurgitation. 3. No significant pericardial effusion. 4. Inferior vena cava is normal size with normal inspiratory collapse. Electronically signed by : Jas Laboy MD 11/11/2021 08:36:17
== END ==
LOC: RT 07:35
PROVIDERS: PCP Internal Medicine Adolescent Medicine; Visit Provider Internal Medicine
DX: I25.10 Atherosclerotic heart disease of native coronary artery without angina pectoris (principal)
CPT/HCPCS: 93306

== ENCOUNTER → 2021-11-11 09:49 | Outpatient (POV) | payer BC, SELFPAY ==
[2021-11-11 10:02] VITALS: BP 175/97; PULSE 70; RESP 18; TEMP 37; O2SAT 99; BMI 35.6
--- NOTE | 2021-11-11 10:19 | HMH.PAINSOAP ---
[facility] Pain Management SOAP Note Subjective:: Patient is a pleasant 56-year-old male who presents today for follow-up. When we last saw this patient, we did a lumbar epidural steroid injection. He states that he had 80 to 90% relief for about a week. This was his second lumbar epidural injection. He says that his first injection lasted him longer and provided 90 to 100% relief. When we last talked of this patient, we were talking about referring him to neurosurgery. He says that he had a lot of things that happened to him in the last 2 to 3 months and was not able to come to our clinic. He did talk to his regarding this referral to neurosurgery and wants to proceed with this plan. 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 He says that he has a lot of issues with lumbar rotation especially on the left side. He is thinking about applying for disability in regards to this. He rates his pain today as 2 out of 10. For pain, he takes gabapentin 600 mg twice a day. He also takes Celebrex. He was told to not take this medication because he is on Brilinta. He takes this medication every other day. For his gabapentin, he takes this medication at night only and halves his morning pill because it makes him drowsy for work. [facility] #[id number] with an active morphine equivalent of 0. Review of Systems: General: No recent weight changes, no fever, no sleep disturbances Respiratory: No cough, no shortness of air, no recurring pulmonary infections Cardiovascular/peripheral vascular: No chest pain, no palpitations, no edema, no shortness of breath Gastrointestinal: No new onset incontinence, normal bowel movements reported Genitourinary: No new onset incontinence Musculoskeletal: Low back pain Psychiatric: [Normal mood/affect] Neurological: [Denies weakness in extremities], [denies balance issues] Objective:: Physical Exam: General: Alert and oriented x3, no acute distress, pleasant and cooperative, [on room air] Lungs: Respirations even and unlabored, symmetrical chest expansion Eyes: PERRL Musculoskeletal: Flexion and extension of lumbar [spine] somewhat guarded secondary to pain, +Boudreaux test Neurological: Speech clear, no gross sensory deficit Assessment:: Degenerative disc disease of lumbar spine with lumbar radiculopathy symptoms Lumbar facet arthropathy Lumbar spondylosis Plan:: Patient had temporary relief after his lumbar epidural steroid injection #2. Per his MRI that is posted above, patient has moderate to severe multilevel facet arthropathy causing bilateral neural foraminal narrowing especially at L2-L3 and L5-S1. I discussed with the patient that we can do medial branch blocks/facet injections at bilateral L2-L3 and L5-S1. He wants to talk to his regarding this. Patient is welcome to call us anytime to schedule this injection. I have discussed this injection in detail with the patient including the risk and benefits. Patient is on Brilinta and will need to stop this medication prior to any procedures. We will refer the patient to Dr. Hopper in [place] for further evaluation. He did state that he had a prior back surgery around 12 to 15 years ago. He is unsure of what kind of back surgery he had and he is not sure on who did it. Patient has been instructed to contact the clinic with any concerns before the next appointment. Dr. Romero has reviewed this note and agrees with this plan of care. This note was dictated using voice recognition software and make contain errors or omissions. [facility] History Medical History: Reports:: Atherosclerotic Heart Disease, Coronary Artery Disease, Diabetes Mellitus Type 2, Hyperlipidemia, Hypertension, Myocardial Infarction Denies:: Cancer, Diabetes Mellitus Type 1, Internal Pacemaker, MRSA, Seizures *Have you ever received a pneumonia vaccine?: Yes *Have you received a flu vaccine this season?: Yes Other Medical History: Reports: Arthritis. Denies: Blood Transfusion Reaction Other Surgerie
== END ==
PROVIDERS: Visit Provider Student in an Organized Health Care Education/Training Program
DX: M51.16 Intervertebral disc disorders with radiculopathy, lumbar region (principal); M54.06 Panniculitis affecting regions of neck and back, lumbar region; M47.896 Other spondylosis, lumbar region
CPT/HCPCS: 99212; G0463

== ENCOUNTER 2023-10-14 10:21 | Outpatient (CLI) | payer BC, SELFPAY ==
--- NOTE | 2023-10-14 10:24 | CT_ITS ---
FINAL REPORT TECHNIQUE: Thin section axial images were obtained from the lung apices to the upper abdomen by computed tomography. Reformatted images were obtained and reviewed. This study was performed with techniques to keep radiation doses al low as reasonably achievable (ALARA). Individualized dose reduction techniques using automated exposure control or adjustment of mA and/or kV according to the patient's size were employed. CLINICAL HISTORY: H/O TOBACCO USE current smoker 1.5 ppd x 40 years CTDI 2.90 DLP 114.64 COMPARISON: None FINDINGS: CHEST CT LOW DOSE 58-year-old male, current smoker, [id number] history. CTDI vol (mGy): 2.9 DLP (mGy-cm): 114.64 There is no axillary adenopathy. There is no mediastinal or hilar mass or adenopathy. The heart is normal in size. There is no pericardial or pleural effusion. There is mild emphysema and mild pulmonary scarring. There is a calcified granuloma present in the left lower lobe. Lung window images demonstrate several nodules, including a 4 mm lateral right lower lobe nodule seen best on image #58. There is a 3 mm lateral left lower lobe nodule, seen best on image #59. There is also a 2 mm posterior left lower lobe nodule seen best on image #65. Limited images of the upper abdomen are unremarkable. IMPRESSION: Lung-RADS category 2. Recommend 12 month follow up low dose chest CT. Reviewed, Interpreted and Dictated by David Bansal III, MD Transcribed by Marian Hernandez Authenticated and [facility] [place]
== END 2023-10-14 23:59 ==
LOC: RAD 10:21
PROVIDERS: PCP Internal Medicine Adolescent Medicine; Visit Provider Internal Medicine Adolescent Medicine
DX: Z87.891 Personal history of nicotine dependence (principal); Z12.2 Encounter for screening for malignant neoplasm of respiratory organs
CPT/HCPCS: 71271

== ENCOUNTER 2024-05-16 09:09 | Outpatient (CLI) | payer BC, SELFPAY ==
--- NOTE | 2024-05-16 09:19 | CA_ITS ---
APPROVED REPORT EXAM: Comprehensive 2D, Doppler, and color-flow Echocardiogram Pest Management Supervisor: YAMINI Mosquera, RVS Ht: 6 ft 1 in Wt: 256lbs BSA: 2.39 BP: 122/78 mmHg Indications: CAD, Smoker, HTN, DM, Palpitations, Fatigue, PEDRO 2D Dimensions IVSd 1.27 cm M: 0.6-1.2 LVEF (Visual) 65.10 % PWd 1.23 cm M: 0.6 - 1.2 LA Volume 52.40 mL LVDd 4.84 cm M: 4.2 - 5.9 LA Volume Index [id number] mL/m2 (M/F) 16-34 LVDs 3.11 cm M: 2.5 - 4.0 Left Atrium 3.25 cm M: 3.0 - 4.0 M-Mode Dimensions RVDd 2.46 cm (0.9-2.6) LA Diam 3.75 cm (1.9-4.0) LVDd 4.75 cm (3.5-5.7) LVDs 3.80 cm (3.5-5.7) IVSd 1.40 cm (0.6-1.1) PWd 1.31 cm (0.6-1.1) EF (Teich) 52.60% EPSs 0.51 cm FS 27.20% EDV (Teich) 130.70 mL ESV (Teich) 62.00 mL LV Diastology E Decel Time 250 (160-240 msec) E/A Ratio 0.92 MED A' 14.20 cm/s LAT A' 12.70 cm/s Aortic Valve RENETTA Index 1.45 cm2/m2 AoV Peak Cesar. 105.0 (50-130 cm/s) AO Peak GR. 4.40 mmHg AO Mean GR. 2.20 (<5 mmHg) AO VTI 23.0 (18-25 cm) RENETTA (VTI) 3.55 (2.5-4.5 cm2) Mitral Valve MV E Max Cesar. 68.0 (40-130 cm/s) MV A Velocity 75.0 (40-130 cm/s) E/A Ratio 0.92 MV PHT 73.0 ms Left Ventricle The left ventricle is normal size. The left ventricular systolic function is normal. The left ventricular ejection fraction is within the normal range. There is normal left ventricular wall thickness. There is normal LV segmental wall motion. The left ventricular diastolic function is normal. LVEF is 55%. Right Ventricle The right ventricle is normal size. The right ventricular systolic function is normal. Atria The left atrium size is normal. The right atrium size is normal. There is no Doppler evidence of interatrial shunt. Aortic Valve The aortic valve opens well. There is no aortic valvular stenosis. No aortic regurgitation is present. Mitral Valve The mitral valve is normal in structure. No evidence of mitral valve stenosis. Trace mitral regurgitation. Tricuspid Valve Tricuspid valve is grossly normal in structure and function. Trace tricuspid regurgitation. There is insufficient TR jet to estimate RVSP. Pulmonic Valve The pulmonary valve is normal in structure. Trace pulmonic regurgitation. Great Vessels The aortic root is normal in size. The ascending aorta is not well-visualized. IVC is normal in size and collapses >50% with inspiration. Pericardium There is no pericardial effusion. Other Information Study Quality: Adequate Conclusion Normal biventricular systolic function. No significant valvular stenosis or regurgitation. Electronically signed by : Anette Pyle MD 05/22/2024 00:00:24
== END 2024-05-16 23:59 | disposition home or self-care (01) ==
PROVIDERS: PCP Internal Medicine Adolescent Medicine; Visit Provider Nurse Practitioner
DX: I34.0 Nonrheumatic mitral (valve) insufficiency (principal); I25.10 Atherosclerotic heart disease of native coronary artery without angina pectoris; I25.2 Old myocardial infarction; Z95.5 Presence of coronary angioplasty implant and graft
CPT/HCPCS: 93306